=== PATIENT | male | born 1985 | race Caucasian/White ===

== ENCOUNTER 2017-12-21 21:28 | Emergency (ER) | payer SELFPAY ==
[~2017-12-21] VITALS: Ht 177.8 cm; Wt 86.2 kg
[2017-12-21] MEDS ORDERED: Ketorolac 30mg Inj IV ONE (22:00)
[2017-12-21] MEDS ORDERED: Midazolam 2mg/2ml Inj IVP ONE ×2 (22:00→23:00)
[2017-12-21] MEDS ORDERED: Etomidate 40mg/20ml Inj IV ONE ×2 (22:05→23:15)
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
[2017-12-21 22:39] VITALS: BP 122/95
[2017-12-21 22:50] VITALS: BP 110/74
[2017-12-21 22:55] VITALS: BP 108/82
[2017-12-21 23:00] VITALS: BP 108/72
[2017-12-21 23:05] VITALS: BP 110/78
[2017-12-21 23:10] VITALS: BP 107/68
[2017-12-22] MEDS ORDERED: DiphenhydrAMINE 50mg/ml Inj IVP ONE (00:45)
[2017-12-22] MEDS ORDERED: Etomidate 40mg/20ml Inj IV ONE (02:15)
[2017-12-22] MEDS ORDERED: ROBAXIN500 MG PO (02:16)
[2017-12-22] MEDS ORDERED: IBUPROFEN600 MG ORAL (02:16)
[2017-12-22] MEDS ORDERED: TYLENOL325 MG ORAL (02:19)
[2017-12-22 02:30] VITALS: BP 110/72
[2017-12-22 18:20] VITALS: BP 115/75
[2017-12-22 22:50] VITALS: BP 115/75
== END 2017-12-22 03:08 | disposition home or self-care (01) ==
LOC: EMR 22:04
DX: S03.00XA Dislocation of jaw, unspecified side, initial encounter (principal); Z72.89 Other problems related to lifestyle; K21.9 Gastro-esophageal reflux disease without esophagitis; X58.XXXA Exposure to other specified factors, initial encounter; Y92.098 Other place in other non-institutional residence as the place of occurrence of the external cause
CPT/HCPCS: 21480; 96374; 96375; 96376; 99284; J1200; J1885; J2250

== ENCOUNTER 2018-02-18 17:05 | Emergency (ER) | payer SELFPAY ==
[~2018-02-18] VITALS: Ht 177.8 cm; Wt 77.1 kg
[2018-02-18] VITALS (14 sets, daily range): BP systolic 123–165; BP diastolic 69–96
[~2018-02-18 17:05] MED LIST: IBUPROFEN600 MG ORAL; ROBAXIN500 MG PO; TYLENOL325 MG ORAL
--- NOTE | 2018-02-18 17:20 | NUR ---
ED Nurse Note: PT WALKED IN TO ER TODAY FROM HOME. AOX4. PT C/O POSSIBLE JAW DISLOCATION AFTER EATING ABOUT 6 HOURS AGO. PT C/O 08/20 PAIN. PT UNABLE TO OPEN AND CLOSE MOUTH FREELY. PT STATES HE HAS HX OF BROKEN JAW.
[2018-02-18] MEDS ORDERED: Norco 5mg/325mg tab ORAL ONE (17:30)
--- NOTE | 2018-02-18 19:11 | NUR ---
HAND-OFF: REPORT GIVEN TO LOTUS OLIVEIRA.
--- NOTE | 2018-02-18 19:15 | NUR ---
ED Nurse Note: received report from LOTUS Bear and assumed care, pt reports pain is tolerable, vss, waiting for bed for mod sedation, PA aware of pt's condition, will cont monitor. Pt aA&ox4, gcs=15, ambulatory w/ steady gait. airway patent. resp even and unlabored.
--- NOTE | 2018-02-18 19:44 | NUR ---
ED Nurse Note: report given to Connie GAUTAM, pt transferred to bed for monitoring for mod sedation. Addendum: 02/19/18 at 0132 by EDUARD correction [id number].
[2018-02-18] MEDS ORDERED: Propofol 200mg/20ml IV ONE ×3 (21:15→22:45)
--- NOTE | 2018-02-18 21:25 | NUR ---
ED Nurse Note: Moderate sedation procedure started at this time. IV access is established. Consent is signed. RT, RN, EMT, PA, and ERMD all at bedside.
[2018-02-18] MEDS ORDERED: Midazolam 2mg/2ml Inj ONE (22:00)
--- NOTE | 2018-02-18 22:07 | NUR ---
ED Nurse Note: 400mg of Propofol and 13mg of Versed administered by JUAN JOSÉ Guthrie during procedure at bedside.
--- NOTE | 2018-02-18 22:10 | Emergency Room Report ---
History of Present Illness General Chief Complaint: Pain Source: Patient Present Illness HPI 32-year-old male presents to the emergency department complaining of 6 out of 10 in severity pain that he describes as an localized aching pain with sensation of having his mandible dislocated. 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 Patient reports onset during eating 6 hours prior to arrival. He denies specific trauma or fall. Reports difficulty with closing his mouth. Denies any relieving factors. Patient states allergy to ketamine and states that it causes him to have severe hallucinations. Patient reports that he ill early requires procedural sedation. Pt. reports hx of esophageal strictures. Allergies: Coded Allergies: No Known Allergies (Unverified , 12/21/17) Patient History Past Medical History: see triage record Past Surgical History: none Immunizations: UTD Reviewed Nursing Documentation: PMH: Agreed; PSxH: Agreed Nursing Documentation-PMH Past Medical History: No History, Except For Hx Gastrointestinal Problems: Yes - GERD Review of Systems All Other Systems: negative except mentioned in HPI Physical Exam Vital Signs Date Time Temp Pulse Resp B/P (MAP) Pulse Ox O2 Delivery O2 Flow Rate FiO2 02/18/18 17:16 98.2 90 20 148/102 99 Room Air Sp02 EP Interpretation: reviewed, normal General Appearance: no apparent distress, alert, GCS 15, non-toxic Head: normocephalic, other - visible deformity in jaw/unable to close mouth. no bruises, erythema or blood. Eyes: bilateral eye normal inspection, bilateral eye PERRL ENT: hearing grossly normal, normal voice Neck: full range of motion Respiratory: lungs clear, normal breath sounds, speaking full sentences Cardiovascular #1: regular rate, rhythm Musculoskeletal: back normal, gait/station normal, normal range of motion, non- tender Neurologic: alert, oriented x3, responsive, motor strength/tone normal, sensory intact, speech normal, grossly normal Psychiatric: judgement/insight normal Skin: normal color, no rash, warm/dry, well hydrated Lymphatic: no adenopathy Procedures Procedural Sedation Consent: Verbal Time out called at: 21:23 Pre-Sedation Assessment: Elective, Eval. Immed. Prior to Sed, Pre-proc Edu. done, Plan for Sedation Discuss Airway Assessment (Malampati): I Heart: normal Lungs: normal Abdomen: normal Extremities: normal Procedures/Plans: Closed Reduction Plan for Moderate Sedation: Propofol ASA Score: I Procedure Narrative Total of 400mg Propofol given Pt. required additional 13mg of versed. After multiple attempts the mandible remains unsuccessfully reduced and is still dislocated at this time. No complication during sedation or closed reduction attempts. Will admit. Start Time: 21:25 End Time: 22:07 Post-Sedation Assessment Pt. tolerated well. there were no complications. total time was 42 minutes face to face. Communication: mandible dislocation Mental Status: Awake Respiration: Unlabored Skin Condition: WNL Abdomen: WNL Nausea: NO Vomiting: NO Medical Decision Making PA Attestation Dr. Guthrie is my supervising Physician whom patient management has been discussed with. Diagnostic Impression: Primary Impression: Recurrent jaw subluxation Qualified Codes: S03.00XA - Dislocation of jaw, unspecified side, initial encounter ER Course 32-year-old male presents to the emergency department complaining of 6 out of 10 in severity pain that he describes as an localized aching pain with sensation of having his mandible dislocated. 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 Patient reports onset during eating 6 hours prior to arrival. He denies specific trauma or fall. Reports difficulty with closing his mouth. Denies any relieving factors. Patient states allergy to ketamine and states that it causes him to have severe hallucinations. Patient reports that he ill early requires procedural sedation. Pt. reports hx of esophageal strictures. Ddx considered but are not limited to Fracture, dislocation, contusion, Sprain/ Strain/Spasm, self-dislocation, Vital signs: are WNL, pt. is afebrile H&PE are most consistent with Mandibular dislocation will perform imaging ORDERS: - Ct Facial Bones no contrast: anterior mandibular dislocation. ED INTERVENTIONS: - [place] PO -Zofran ODT --Procedural sedation - please see procedure note. --During procedure it seemed to slow patient was resisting attempts. There are multiple times where jaw was successfully palpated and visualized to have reduce with easy ability to open and close however soon as patient comes to he was reporting inability to open and close his mouth and would hold jaw in the same position. Also somewhat concerning as patient stated prior to starting procedural sedation that he requires 400 mg of propofol and in the past even 450. After multiple unsuccessful attempts to reduce the jaw ED efforts have ceased. After reviewing patient's previous visits chart it appears that 3 views provider was facing the similar situation where jaw was reduced successfully during procedural sedation however upon awakening patient was self dislocating. Patient was ultimately discharged for ENT follow-up with the right side of his mandible still displaced. Pending admission at time of Pt. sign out. Pt. is Signed out to On-Coming ED physician Dr. Chavez. CT/MRI/US Diagnostic Results CT/MRI/US Diagnostic Results : Imaging Test Ordered: CT Head No Contrast Impression " Both mandibular condyles are dislocated anteriorly, completely outside the glenoid fossa. The mandible is otherwise intact with no evidence of fracture." Per official radiology report- Please see report for specific details. Last Vital Signs Date Time Temp Pulse Resp B/P (MAP) Pulse Ox O2 Delivery O2 Flow Rate FiO2 02/18/18 17:20 98.4 86 18 142/96 98 Room Air Condition: Stable Signed Out To: Dr. Chavez Scripts Methocarbamol* (ROBAXIN-750*) 750 Mg Tablet 750 MG PO TID, #21 TAB 0 Refills Prov: Cr Chavez MD 02/19/18 Hydrocodone Bit/Acetaminophen 5-325* (NORCO 5-325*) 1 Each Tablet 1 TAB ORAL Q6H PRN for For Pain, #10 TAB 0 Refills Prov: Cr Chavez MD 02/19/18 Referrals: NOT CHOSEN IPA/,REFERRING (PCP) Susie Beaver Feb 18, 2018 22:10
[2018-02-18] MEDS ORDERED: Midazolam 2mg/2ml Inj IVP ONE (22:45)
--- NOTE | 2018-02-18 23:15 | NUR ---
ED Nurse Note: RECIEVED PT FROM [facility] HOR[facility] TO RESUME CARE, PT JUST COMPLETED MODERATE SEDATION FOR TMJ WHICH WAS NOT SUCCESSFUL, PT IS CURRENTLY RESTING WAITING FOR DISPO INFO OR ADMIT, PT IS AWAKE, ALERT AND ORIENTED X 4, NO SOB OR LABORED BREATHING, PT CONTINUES TO C/O HAVING PAIN AT 7/10, PT IS ON CARDIAC MONITORING, AND WILL CONTINUE TO CLOSELY MONITOR, PT HAS COMPLETELY RECOVERED FROM SEDATION.
[2018-02-19] VITALS (9 sets, daily range): BP systolic 108–158; BP diastolic 64–92
--- NOTE | 2018-02-19 00:30 | NUR ---
ED Nurse Note: PT CONTINUES TO REST IN BED, AWAKE AND ALERT, PT IS SLEEPING INTERMITTENTLY, AROUSEA EASILY, REMAINS ON CARDIAC MONITORING, IV SITE PATENT, NO SOB OR LABORED BREATHING, WILL CONTINUE OT CLOSELY MONITOR WHILE WAITING FOR INFO FOR DISPOSITION.
--- NOTE | 2018-02-19 01:30 | NUR ---
ED Nurse Note: PT IN BED SLEEPING, AROUSES EASILY TO VERBALS TIMULI, NO ACUTE CHAGNES OR INCREASED DISTRESS NOTED, V/S STABLE, NO SOB OR LABORED BREATHING, PT NO LONGER ASKING FOR PAIN MEDS, REMAINS ON CARDIAC MONITORING, WILL CONITNUE TO CLOSELY MONITOR AND RESUME CARE ORDERED.
--- NOTE | 2018-02-19 03:00 | NUR ---
ED Nurse Note: PT SLEEPING, ON MONITORING, IV PATENT, NO SOB OR LABORED BREATHING, NO CHAGNES OR INCREASED DISTRESS, V/S STABLE, WILL CONTINUE OT CLOSELY MONITOR.
--- NOTE | 2018-02-19 05:00 | NUR ---
ED Nurse Note: pt continues to sleep, arouses easily to verbal stimuli, states has mild pain at 2/10, denies cp, sob, or any other complaints, discomforts, or changes, pt jaw did not go back in place, md aware, pt being preapred for disposition.
[2018-02-19] MEDS ORDERED: NORCO 5-325 TA1 EACH ORAL (05:49)
[2018-02-19] MEDS ORDERED: ROBAXIN-750750 MG PO (05:49)
--- NOTE | 2018-02-19 06:15 | NUR ---
ED Nurse Note: Pt being d/c to home, pt is awake, alert and oriented x 4, pt is completely recovered from sedation procedure, pt deneis cp, no sob or labored breathing, pt is ambulatory, pt given f/u info, after care instructions and re-verbalizes proper medication administration and also given referrals for f/u md, pt has all paper works, iv line and armband removed, nad noted during d/c to home.
--- NOTE | 2018-02-19 09:21 | Diagnostic Imaging Report ---
Indications: Jaw pain, possible jaw dislocation, 7 out of 10 pain, patient unable to open and close mouth, history of prior mandibular fracture Technique: Spiral images obtained through the facial bones. No IV contrast utilized. Multiplanar reconstructions were generated.Total dose length product 654.96 mGycm. CTDIvol(s) 28.19 mGy. Dose reduction achieved using automated exposure control Comparison: none Findings: Both mandibular condyles are dislocated anteriorly, completely outside the glenoid fossa. The mandible is otherwise intact with no evidence of fracture. Some sort of prosthetic protrudes from the left mentum of the mandible laterally. Similar prostheses protruding from the maxilla on both sides, between the canine teeth and the first premolars. No acute fractures. The sinuses are clear. The upper aerodigestive tract appears unremarkable. No facial mass or adenopathy. The included intracranial structures are unremarkable. Visualized orbits and optic globes are unremarkable. Impression: Positive for bilateral anterior temporomandibular joint dislocation Dental prostheses versus cosmetic implants-correlate with clinical history No other acute or significant abnormality This agrees with the preliminary interpretation provided overnight by [facility] teleradiology service. The CT scanner at [facility] is accredited by the [employer] and the scans are performed using protocols designed to limit radiation exposure to as low as reasonably achievable to attain images of sufficient resolution adequate for diagnostic evaluation.
== END 2018-02-19 06:30 | disposition home or self-care (01) ==
LOC: EMR 17:51
DX: S03.00XA Dislocation of jaw, unspecified side, initial encounter (principal); X58.XXXA Exposure to other specified factors, initial encounter; Y92.9 Unspecified place or not applicable; Z88.8 Allergy status to other drugs, medicaments and biological substances
CPT/HCPCS: 21480; 70486; 96361; 96374; 96375; 96376; 99284; J2250; J2704

== ENCOUNTER 2018-05-31 03:28 | Inpatient (IN) | payer SELFPAY ==
[~2018-05-31] VITALS: Ht 172.7 cm; Wt 88.5 kg
[~2018-05-31 03:28] MED LIST changes: +NORCO 5-325 TA1 EACH ORAL; +ROBAXIN-750750 MG PO
[2018-05-31] MEDS ORDERED: Thiamine HCl 100 MG in D5W 55 ML IVPB STA (03:33)
[2018-05-31 03:40] VITALS: BP 110/76
--- NOTE | 2018-05-31 03:40 | NUR ---
ED Nurse Note: PATIENT WAS BROUGHT BY BREANNE FRAZIER 61 FROM HOME C/O ETOH AND VOMITTING SINCE 0300. BLOOD SUGAR 127. PATIENT HAS FLAT AFFECT NO RESPONSE. VSS AT THIS TIME, WILL CONTINUE TO MONITOR.
--- NOTE | 2018-05-31 03:44 | Emergency Room Report ---
History of Present Illness General Chief Complaint: Alcohol Intoxication Source: EMS Present Illness HPI Patient brought in by EMS. Is barely at a alliance party and been drinking alcohol. No most the alliance party didn't know where this person was. Paramedics were summoned and had loaded the patient up when another friend came out and reported that this patient has esophageal cancer. They're also told that the patient was vomiting up some blood or coffee grounds. Accu-Chek was normal in the field. The patient's vomiting on the way in. The patient's unable to give a history. Allergies: Coded Allergies: No Known Allergies (Unverified , 05/31/18) Patient History Social History: Reports: alcohol use Reviewed Nursing Documentation: PMH: Agreed; PSxH: Agreed Nursing Documentation-PMH Past Medical History: No History, Except For Physical Exam Vital Signs Date Time Temp Pulse Resp B/P (MAP) Pulse Ox O2 Delivery O2 Flow Rate FiO2 05/31/18 03:25 92 16 110/76 95 Room Air Sp02 EP Interpretation: reviewed, abnormal - Interpreted as low by me General Appearance: well appearing, Stupor Head: normocephalic Eyes: bilateral eye PERRL, bilateral eye abnormal EOM - Disconjugate gaze, bilateral eye Scleral Injection ENT: moist mucus membranes - Gag intact, white positive material vomited Neck: supple, no bony tend - Or deformity Respiratory: crackles, rales, rhonchi, other - Occasional cough Cardiovascular #1: regular rate, rhythm Cardiovascular #2: 2+ radial (R) Gastrointestinal: normal inspection, non tender, no mass, non-distended, decreased bowel sounds Musculoskeletal: back normal, other - Flaccid Neurologic: other - Unresponsive to painful stimuli, gag present Psychiatric: other - Stupor Skin: normal inspection, warm/dry Procedures Critical Care Time Critical Care Time Total Critical Care Time: 60 min bedside evaluation and treatment excludes procedures (EKG). Reason for critical care: stupor, airway assessment and control, UGI bleed Possible complications: hypotension, hypertension, [place], shock, arrhythmias, metabolic acidosis, end organ damage, respiratory failure. Interventions: SHOE REPAIRER airway, repeated exams, treatment of UGI bleed Course: Patient with stupor after alcohol ingestion vomiting coffee grounds. Multiple evaluations of airway. Insertion of nasal pharyngeal airway with patient desaturated due to traction by tongue. Treatment of upper GI bleed with Protonix. Treatment of vomiting with antiemetics. Discussion with admitting physician. Treatment of probable aspiration pneumonia with evaluation with blood cultures and treatment with antibiotics. Resolving stupor with repeated examinations. Consultations: nursing staff, EMS Performed by: Dr. Moore Tolerated well condition = serious Medical Decision Making Diagnostic Impression: Primary Impression: Acute alcoholic intoxication Qualified Codes: F10.929 - Alcohol use, unspecified with intoxication, unspecified Additional Impressions: Upper gastrointestinal bleed Aspiration pneumonia Qualified Codes: J69.0 - Pneumonitis due to inhalation of food and vomit Stupor ER Course Patient with altered mentation with alcohol on his breath and history of alcohol consumption presents with also vomiting some coffee grounds. Differential includes esophageal cancer, Carolyn-Lopez tear, gastritis, peptic ulcer disease amongst others. Regarding the altered mentation alcohol is primarily suspected however we need to consider electrolyte imbalance, drug ingestion amongst others. Patient is evaluated with EKG, chest x-ray and labs. He will need to have repeat neurologic exams. CT scan is ordered. Unable to ascertain if suicide attempt. EKG without injury. CXR poor insp and increased terrell R. WBC normal. BAL high. CT without acute pathology. 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 Coughing and rales R. Clinically has aspiration pna - BC and antibiotics ordered. Patient desat with upper airway obstruction - OPA suction and then SHOE REPAIRER airway inserted by ERMD. Sats on RA = 100%. 5:12. Patient still stupor but protecting airway better. He pulled out SHOE REPAIRER airway. Discussed with Dr. Nava. Patient still vomiting guaiac + material @6:30. Antiemetics repeated. Laboratory Tests Test 05/31/18 03:50 White Blood Count 7.6 K/UL (4.8-10.8) Red Blood Count 5.02 M/UL (4.70-6.10) Hemoglobin 11.1 G/DL (14.2-18.0) L Hematocrit 36.6 % (42.0-52.0) L Mean Corpuscular Volume 73 FL (80-99) L Mean Corpuscular Hemoglobin 22.1 PG (27.0-31.0) L Mean Corpuscular Hemoglobin Concent 30.3 G/DL (32.0-36.0) L Red Cell Distribution Width 16.0 % (11.6-14.8) H Platelet Count 471 K/UL (150-450) H Mean Platelet Volume 6.8 FL (6.5-10.1) Neutrophils (%) (Auto) 62.2 % (45.0-75.0) Lymphocytes (%) (Auto) 28.1 % (20.0-45.0) Monocytes (%) (Auto) 4.4 % (1.0-10.0) Eosinophils (%) (Auto) 3.6 % (0.0-3.0) H Basophils (%) (Auto) 1.6 % (0.0-2.0) Urine Color Pale yellow Urine Appearance Clear Urine pH 5 (4.5-8.0) Urine Specific [place] 1.010 (1.005-1.035) Urine Protein Negative (NEGATIVE) Urine Glucose (UA) Negative (NEGATIVE) Urine Ketones Negative (NEGATIVE) Urine Blood 3+ (NEGATIVE) H Urine Nitrite Negative (NEGATIVE) Urine Bilirubin Negative (NEGATIVE) Urine Urobilinogen Normal MG/DL (0.0-1.0) Urine Leukocyte Esterase 1+ (NEGATIVE) H Urine RBC 2-4 /HPF (0 - 0) H Urine WBC 0-2 /HPF (0 - 0) Urine Squamous Epithelial Cells None /LPF (NONE/OCC) Urine Bacteria None /HPF (NONE) Sodium Level 138 MMOL/L (136-145) Potassium Level 3.7 MMOL/L (3.5-5.1) Chloride Level 103 MMOL/L (98-107) Carbon Dioxide Level 22 MMOL/L (21-32) Anion Gap 13 mmol/L (5-15) Blood Urea Nitrogen 15 mg/dL (7-18) Creatinine 1.0 MG/DL (0.55-1.30) Estimate Glomerular Filtration Rate > 60 mL/min (>60) Glucose Level 131 MG/DL (74-106) H Calcium Level 8.2 MG/DL (8.5-10.1) L Total Bilirubin 0.1 MG/DL (0.2-1.0) L Aspartate Amino Transferase (AST) 17 U/L (15-37) Alanine Aminotransferase (ALT) 31 U/L (12-78) Alkaline Phosphatase 81 U/L (46-116) Total Creatine Kinase 94 U/L (26-308) Total Protein 7.8 G/DL (6.4-8.2) Albumin 4.0 G/DL (3.4-5.0) Globulin 3.8 g/dL Albumin/Globulin Ratio 1.1 (1.0-2.7) Salicylates Level 1.1 ug/mL (2.8-20) L Urine Opiates Screen Negative (NEGATIVE) Acetaminophen Level < 2 MCG/ML (10-30) L Urine Barbiturates Screen Negative (NEGATIVE) Phencyclidine (PCP) Screen Negative (NEGATIVE) Urine Amphetamines Screen Negative (NEGATIVE) Urine Benzodiazepines Screen Negative (NEGATIVE) Urine Cocaine Screen Negative (NEGATIVE) Urine Marijuana (THC) Screen Negative (NEGATIVE) Serum Alcohol 461 mg/dL EKG Diagnostic Results Rate: normal Rhythm: NSR ST Segments: no acute changes Rhythm Strip Diag. Results EP Interpretation: yes Rhythm: NSR, no PVC's, no ectopy Chest X-Ray Diagnostic Results Chest X-Ray Diagnostic Results : Chest X-Ray Ordered: Yes # of Views/Limited/Complete: 1 View Interpretation: no effusion, no pneumothorax, other - RLL infiltrate - poor inspriation Impression: Other Electronically Signed by: Electronically signed by Braden Moore MD CT/MRI/US Diagnostic Results CT/MRI/US Diagnostic Results : Imaging Test Ordered: head Impression no bleed, mass Status: improved Disposition: PLACE IN OBSERVATION Condition: Serious Scripts No Active Prescriptions or Reported Meds Braden Moore MD May 31, 2018 03:44
[2018-05-31] MEDS ORDERED: Pantoprazole Inj IVP ONE (03:45)
[2018-05-31 04:08] LABS: APPEARANCE,URINE CLEAR; BILIRUBIN, URINE NEGATIVE (NEGATIVE); COLOR,URINE PALE YELLOW; GLUCOSE, URINE (UA) NEGATIVE (NEGATIVE); KETONES,URINE NEGATIVE (NEGATIVE); LEUKOCYTE ESTERASE ,URINE 1+ (NEGATIVE); NITRITE,URINE NEGATIVE (NEGATIVE); PH,URINE 5 (4.5-8.0); PROTEIN,URINE NEGATIVE (NEGATIVE); UROBILINOGEN,URINE NORMAL MG/DL (0.0-1.0)
--- NOTE | 2018-05-31 04:11 | Diagnostic Imaging Report ---
EXAM: XR Chest, 1 View CLINICAL HISTORY: ALOC TECHNIQUE: Frontal view of the chest. COMPARISON: None FINDINGS: Lungs: Lungs show hypoventilatory changes but otherwise unremarkable. Pleural space: Unremarkable. No pneumothorax. Heart: Unremarkable. No cardiomegaly. Mediastinum: Unremarkable. Bones/joints: Unremarkable. IMPRESSION: Hypoventilatory chest. Otherwise no acute findings.
[2018-05-31 04:14] LABS: BASOPHILS % (AUTO) 1.6 % (0.0-2.0); EOSINOPHILS % (AUTO) 3.6 % (0.0-3.0); HEMATOCRIT 36.6 % (42.0-52.0); HEMOGLOBIN 11.1 G/DL (14.2-18.0); LYMPHOCYTES % (AUTO) 28.1 % (20.0-45.0); MEAN CORPUSCULAR VOLUME 73 FL (80-99); MONOCYTES % (AUTO) 4.4 % (1.0-10.0); NEUTROPHILS % (AUTO) 62.2 % (45.0-75.0); PLATELET COUNT 471 K/UL (150-450); RED BLOOD COUNT 5.02 M/UL (4.70-6.10); WHITE BLOOD COUNT 7.6 K/UL (4.8-10.8)
[2018-05-31 04:25] LABS: ANION GAP 13 mmol/L (5-15); BLOOD UREA NITROGEN 15 mg/dL (7-18); CALCIUM 8.2 MG/DL (8.5-10.1); CARBON DIOXIDE 22 MMOL/L (21-32); CHLORIDE 103 MMOL/L (98-107); POTASSIUM 3.7 MMOL/L (3.5-5.1); SODIUM 138 MMOL/L (136-145)
[2018-05-31 04:31] LABS: ALANINE AMINOTRANSFERASE 31 U/L (12-78); ALBUMIN/GLOBULIN RATIO 1.1 (1.0-2.7); ALKALINE PHOSPHATASE 81 U/L (46-116); ASPARTATE AMINO TRANSFERASE 17 U/L (15-37); BILIRUBIN,TOTAL 0.1 MG/DL (0.2-1.0); CREATINE KINASE 94 U/L (26-308)
[2018-05-31] MEDS ORDERED: Piperacillin/Tazobactam 3.375 GM in NS 110 ML IVPB ONE (05:00)
--- NOTE | 2018-05-31 05:05 | NUR ---
ED Nurse Note: Patient was desaturating 65% at room air. OPA and NPA were placed by ER MD.
--- NOTE | 2018-05-31 05:16 | Diagnostic Imaging Report ---
EXAM: CT Head Without Intravenous Contrast CLINICAL HISTORY: ALOC TECHNIQUE: Axial computed tomography images of the head/brain without intravenous contrast. CTDI is 70.53 mGy and DLP is 1478 mGy-cm. One or more of the following dose reduction techniques were used: automated exposure control, adjustment of the mA and/or kV according to patient size, use of iterative reconstruction technique. COMPARISON: none FINDINGS: Brain: Unremarkable. No hemorrhage. No significant white matter disease. No edema. Ventricles: Unremarkable. No ventriculomegaly. Bones/joints: Unremarkable. No acute fracture. Soft tissues: Unremarkable. Sinuses: Unremarkable as visualized. No acute sinusitis. Mastoid air cells: Unremarkable as visualized. No mastoid effusion. IMPRESSION: Normal head/brain CT.
--- NOTE | 2018-05-31 05:25 | NUR ---
ED Nurse Note: Patient is starting to wake up, removed NPA.
[2018-05-31 05:43] VITALS: BP 125/86
[2018-05-31] MEDS ORDERED: Miralax 17gm pkt ORAL PRN (06:00)
[2018-05-31] MEDS ORDERED: Acetaminophen 650 MG SUPP RECTAL PRN ×2 (06:00)
[2018-05-31] MEDS ORDERED: Milk of Magnesia 30ml Ud ORAL PRN (06:00)
[2018-05-31] MEDS ORDERED: LORazepam Inj 2mg/ml 1ml IV PRN (06:00)
[2018-05-31] MEDS ORDERED: HYDROcodone/Acetamin 5/325 tab ORAL PRN (06:15)
--- NOTE | 2018-05-31 06:18 | General Progress Note ---
Assessment/Plan Plan: [facility] An independent Hospitalist group, where every patient is our [facility] Internal Medicine and Hospitalist Overnight Note Please contact us at Please text me on Voalte from 8a-6p regarding any patient questions From 6p-8a please call [phone] Case discussed with ED Physician. Chart, labs, imaging, vitals and other flowsheets reviewed. Patient presents with bi bleed, etoh intox, asp pna Plan overnight will be ivf, abx, thiamine, folate, protonix Consultsfor AM are GI Full admission orders completed. Full and complete H+P to follow Time of note may not reflect time of encounter. Signed: Nidhi Nava DO [facility] Pager: [phone] Subjective Allergies: Coded Allergies: No Known Allergies (Unverified , 05/31/18) Objective Last 24 Hour Vital Signs Date Time Temp Pulse Resp B/P (MAP) Pulse Ox O2 Delivery O2 Flow Rate FiO2 05/31/18 05:43 97.2 85 20 125/86 96 Room Air 05/31/18 03:40 92 16 Room Air 05/31/18 03:40 97.2 92 16 110/76 95 Room Air 05/31/18 03:25 92 16 110/76 95 Room Air Laboratory Tests 05/31/18 03:50: White Blood Count 7.6, Red Blood Count 5.02, Hemoglobin 11.1L, Hematocrit 36.6L , Mean Corpuscular Volume 73L, Mean Corpuscular Hemoglobin 22.1L, Mean Corpuscular Hemoglobin Concent 30.3L, Red Cell Distribution Width 16.0H, Platelet Count 471H, Mean Platelet Volume 6.8, Neutrophils (%) (Auto) 62.2, Lymphocytes (%) (Auto) 28.1, Monocytes (%) (Auto) 4.4, Eosinophils (%) (Auto) 3.6H, Basophils (%) (Auto) 1.6, Urine Color Pale yellow, Urine Appearance Clear , Urine pH 5, Urine Specific [place] 1.010, Urine Protein Negative, Urine Glucose (UA) Negative, Urine Ketones Negative, Urine Blood 3+H, Urine Nitrite Negative, Urine Bilirubin Negative, Urine Urobilinogen Normal, Urine Leukocyte Esterase 1+H, Urine RBC 2-4H, Urine WBC 0-2, Urine Squamous Epithelial Cells None, Urine Bacteria None, Sodium Level 138, Potassium Level 3.7, Chloride Level 103, Carbon Dioxide Level 22, Anion Gap 13, Blood Urea Nitrogen 15, Creatinine 1.0, Estimat Glomerular Filtration Rate > 60, Glucose Level 131H, Calcium Level 8.2L, Total Bilirubin 0.1L, Aspartate Amino Transf (AST/SGOT) 17, Alanine Aminotransferase (ALT/SGPT) 31, Alkaline Phosphatase 81, Total Creatine Kinase 94, Total Protein 7.8, Albumin 4.0, Globulin 3.8, Albumin/Globulin Ratio 1.1, Salicylates Level 1.1L, Urine Opiates Screen Negative, Acetaminophen Level < 2L, Urine Barbiturates Screen Negative, Phencyclidine (PCP) Screen Negative, Urine Amphetamines Screen Negative, Urine Benzodiazepines Screen Negative, Urine Cocaine Screen Negative, Urine Marijuana (THC) Screen Negative, Serum Alcohol 461 Height (Feet): 5 Height (Inches): 11.00 Weight (Pounds): 195 Nidhi Nava DO May 31, 2018 06:18
--- NOTE | 2018-05-31 06:18 | NUR ---
ED Nurse Note: Gave report to LOTUS Valle. Will transfer patient upstairs after will start Zoysin.
--- NOTE | 2018-05-31 07:24 | NUR ---
ED Nurse Note: patient was admited to tele due to ETOH. Patient still has flat affect, VSS at this time. All belongings were given to the patient, patient was transfered by ACLS protocol.
--- NOTE | 2018-05-31 07:25 | NUR ---
NURSE NOTES: Received report from BRYNN Cheney RN. Report was given to Candace Lopez RN.
--- NOTE | 2018-05-31 07:25 | NUR ---
NURSE NOTES: Report received from Angelica Hackett RN.Pt a new admission ED,for ALOC,ETOH abuse and UGIB.Pt stuporous,very difficult to arouse with verbal command, pupils very sluggish,opens eyes with painful stimuli,noted no resp distress on RA,no signs of pain or discomfort,SR on the monitor,Pt's breath smells of alcohol,Pt's gown fr ED with dark brown stains from vomiting,SR up x2 ,call addison within reach,HOB elevated,bed alarm in placed,bed lock in lowest position,will continue to monitor pt's neuro status.
[2018-05-31 08:00] VITALS: BP 117/78
[2018-05-31] MEDS: Thiamine 100mg tab ORAL SCH (08:50)
[2018-05-31] MEDS: Pantoprazole Inj IV SCH ×2 (08:50→17:38)
--- NOTE | 2018-05-31 08:59 | History & Physical ---
History and Physical History & Physicial Pt seen and examined at bedside. Full H+P to follow. pt admitted for altered mentation, possible GI bleeding. Pt at bedside is difficult to arouse with sternal rub, however was able to arouse. Pt did not want to converse with me. Examination is benign. Will cont IV fluids, call GI consult as well. Pt without any evidence of infection (pna) at this time. Deya Kelly MD May 31, 2018 08:59
[2018-05-31 12:00] VITALS: BP 94/66
--- NOTE | 2018-05-31 12:00 | NUR ---
NURSE NOTES: Change in neuro status noted,pt's eyes open spontaneously when called by name and answers verbally but still lethargic,pt continue to sleep most of the time.
[2018-05-31] MEDS: Ampicillin/Sulbactam Sod 3 GM in NS 110 ML IVPB SCH ×2 (13:13→17:38)
[2018-05-31 16:00] VITALS: BP 109/77
--- NOTE | 2018-05-31 17:01 | NUR ---
CASE MANAGEMENT: REVIEW 33/M BIBA FROM HOME CC: VOMITING . ALCOHOL INTOXICATION SI: EtOH ABUSE . ASPIRATION . UPPER GI BLEED T 97.4 HR 84 RR 18 BP 94/66 SAT 94% ROOM AIR H/H 11.1/36.6 TOX: ALCOHOL 461 IS: THIAMINE IV X1 NS IVF BOLUS X1 PROTONIX IV X1 LEVOFLOXACIN IV X1 ZOSYN IV X1 PATIENT ADMITTED TO TELEMETRY UNIT05/31/2018 DCP: PATIENT IS FROM HOME
--- NOTE | 2018-05-31 17:57 | General Progress Note ---
Assessment/Plan Plan: GI CONSULT Dictated Patient more awake, but still confused Will follow EGD once stabilized Thank you Ivelisse Johns MD Subjective Allergies: Coded Allergies: No Known Allergies (Unverified , 05/31/18) Objective Last 24 Hour Vital Signs Date Time Temp Pulse Resp B/P (MAP) Pulse Ox O2 Delivery O2 Flow Rate FiO2 05/31/18 12:00 97.4 95 18 94/66 (75) 94 05/31/18 12:00 84 05/31/18 08:30 Room Air 05/31/18 08:00 98 05/31/18 08:00 97.4 88 19 117/78 (91) 98 05/31/18 07:23 97.2 85 20 125/86 96 Room Air 05/31/18 05:43 97.2 85 20 125/86 96 Room Air 05/31/18 03:40 92 16 Room Air 05/31/18 03:40 97.2 92 16 110/76 95 Room Air 05/31/18 03:25 92 16 110/76 95 Room Air Intake and Output 05/30/18 05/31/18 19:00 07:00 Intake Total 2000 ml Output Total 400 ml Balance 1600 ml Intake IV Total 2000 ml Output Urine Total 400 ml # Voids 3 Laboratory Tests 05/31/18 03:50: White Blood Count 7.6, Red Blood Count 5.02, Hemoglobin 11.1L, Hematocrit 36.6L , Mean Corpuscular Volume 73L, Mean Corpuscular Hemoglobin 22.1L, Mean Corpuscular Hemoglobin Concent 30.3L, Red Cell Distribution Width 16.0H, Platelet Count 471H, Mean Platelet Volume 6.8, Neutrophils (%) (Auto) 62.2, Lymphocytes (%) (Auto) 28.1, Monocytes (%) (Auto) 4.4, Eosinophils (%) (Auto) 3.6H, Basophils (%) (Auto) 1.6, Prothrombin Time 10.1, Prothromb Time International Ratio 1.0, Activated Partial Thromboplast Time 27, Urine Color Pale yellow, Urine Appearance Clear, Urine pH 5, Urine Specific [place] 1.010, Urine Protein Negative, Urine Glucose (UA) Negative, Urine Ketones Negative, Urine Blood 3+H, Urine Nitrite Negative, Urine Bilirubin Negative, Urine Urobilinogen Normal, Urine Leukocyte Esterase 1+H, Urine RBC 2-4H, Urine WBC 0-2 , Urine Squamous Epithelial Cells None, Urine Bacteria None, Sodium Level 138, Potassium Level 3.7, Chloride Level 103, Carbon Dioxide Level 22, Anion Gap 13, Blood Urea Nitrogen 15, Creatinine 1.0, Estimat Glomerular Filtration Rate > 60 , Glucose Level 131H, Calcium Level 8.2L, Total Bilirubin 0.1L, Aspartate Amino Transf (AST/SGOT) 17, Alanine Aminotransferase (ALT/SGPT) 31, Alkaline Phosphatase 81, Total Creatine Kinase 94, Total Protein 7.8, Albumin 4.0, Globulin 3.8, Albumin/Globulin Ratio 1.1, Salicylates Level 1.1L, Urine Opiates Screen Negative, Acetaminophen Level < 2L, Urine Barbiturates Screen Negative, Phencyclidine (PCP) Screen Negative, Urine Amphetamines Screen Negative, Urine Benzodiazepines Screen Negative, Urine Cocaine Screen Negative, Urine Marijuana (THC) Screen Negative, Serum Alcohol 461 Height (Feet): 5 Height (Inches): 9.00 Weight (Pounds): 195 Ivelisse Johns MD May 31, 2018 17:57
--- NOTE | 2018-05-31 18:05 | NUR ---
NURSE NOTES: Pt more responsive at this time ,wakes up on and off and follows command,no resp distress noted.no coffee ground emesis presented.
--- NOTE | 2018-05-31 19:32 | NUR ---
HAND-OFF: Report given to Giovanna GAUTAM,pt stable,resting in bed awake at this time.
--- NOTE | 2018-05-31 19:43 | History and Physical ---
History of Present Illness General Date patient seen: May 31, 2018 Time patient seen: 08:55 Reason for Hospitalization: Alcohol Intoxication Present Illness HPI 33 y/o man brought in by EMS who was experiencing coffee ground emesis. The patient was at a [employer] last night and reportedly had been drinking a significant amount of alcohol. Paramedics were summoned and had loaded the patient up when another friend came out and reported that this patient has esophageal cancer. They're also told that the patient was vomiting up some blood or coffee grounds. Accu-Chek was normal in the field. The patient was vomiting upon arrival to the ED. The pt was unable to give a history in the ED and this AM when I am examining him, hes also not responding to questions, however is arousable to sternal rub.. Allergies: Coded Allergies: No Known Allergies (Unverified , 05/31/18) Medication History No Active Prescriptions or Reported Meds Patient History Limited by: medical condition Healthcare decision maker n/a Resuscitation status Full Code Advanced Directive on File No Past Medical/Surgical History Past Medical/Surgical History: (1) Acute alcoholic intoxication (2) Upper gastrointestinal bleed Family History Family History: Patient reports no known family medical history. Social History Social History: (1) ETOH abuse Review of Systems ROS Narrative unobtainable, pt declines to participate in interview Physical Exam Physical Exam Narrative General: lethargic yet arousable to sternal rub, does not participate in interview and is not verbal, appears stated age Head: normocephalic, without obvious abnormality, atraumatic Eyes: conjunctivae/corneas clear. Throat: lips, mucosa, and tongue normal. MMM Neck: supple, symmetrical, trachea midline, and no JVD Lungs: clear to auscultation bilaterally Heart: regular rate and rhythm, S1, S2 normal, no murmur, click, rub or gallop Abdomen: soft, non-tender, non-distended, bowel sounds normal; no masses or organomegaly Extremities: extremities normal, atraumatic, no cyanosis or edema Pulses: 2+ and symmetric Skin: skin color, texture, turgor normal; no rashes or lesions Last 24 Hour Vital Signs Date Time Temp Pulse Resp B/P (MAP) Pulse Ox O2 Delivery O2 Flow Rate FiO2 05/31/18 16:00 90 05/31/18 16:00 98.6 93 19 109/77 (88) 98 05/31/18 12:00 97.4 95 18 94/66 (75) 94 05/31/18 12:00 84 05/31/18 08:30 Room Air 05/31/18 08:00 98 05/31/18 08:00 97.4 88 19 117/78 (91) 98 05/31/18 07:23 97.2 85 20 125/86 96 Room Air 05/31/18 05:43 97.2 85 20 125/86 96 Room Air 05/31/18 03:40 92 16 Room Air 05/31/18 03:40 97.2 92 16 110/76 95 Room Air 05/31/18 03:25 92 16 110/76 95 Room Air Intake and Output 05/30/18 05/31/18 19:00 07:00 Intake Total 2000 ml Output Total 400 ml Balance 1600 ml Intake IV Total 2000 ml Output Urine Total 400 ml # Voids 3 Laboratory Tests Test 05/31/18 03:50 White Blood Count 7.6 K/UL (4.8-10.8) Red Blood Count 5.02 M/UL (4.70-6.10) Hemoglobin 11.1 G/DL (14.2-18.0) L Hematocrit 36.6 % (42.0-52.0) L Mean Corpuscular Volume 73 FL (80-99) L Mean Corpuscular Hemoglobin 22.1 PG (27.0-31.0) L Mean Corpuscular Hemoglobin Concent 30.3 G/DL (32.0-36.0) L Red Cell Distribution Width 16.0 % (11.6-14.8) H Platelet Count 471 K/UL (150-450) H Mean Platelet Volume 6.8 FL (6.5-10.1) Neutrophils (%) (Auto) 62.2 % (45.0-75.0) Lymphocytes (%) (Auto) 28.1 % (20.0-45.0) Monocytes (%) (Auto) 4.4 % (1.0-10.0) Eosinophils (%) (Auto) 3.6 % (0.0-3.0) H Basophils (%) (Auto) 1.6 % (0.0-2.0) Prothrombin Time 10.1 SEC (9.30-11.50) Prothromb Time International Ratio 1.0 (0.9-1.1) Activated Partial Thromboplast Time 27 SEC (23-33) Urine Color Pale yellow Urine Appearance Clear Urine pH 5 (4.5-8.0) Urine Specific [place] 1.010 (1.005-1.035) Urine Protein Negative (NEGATIVE) Urine Glucose (UA) Negative (NEGATIVE) Urine Ketones Negative (NEGATIVE) Urine Blood 3+ (NEGATIVE) H Urine Nitrite Negative (NEGATIVE) Urine Bilirubin Negative (NEGATIVE) Urine Urobilinogen Normal MG/DL (0.0-1.0) Urine Leukocyte Esterase 1+ (NEGATIVE) H Urine RBC 2-4 /HPF (0 - 0) H Urine WBC 0-2 /HPF (0 - 0) Urine Squamous Epithelial Cells None /LPF (NONE/OCC) Urine Bacteria None /HPF (NONE) Sodium Level 138 MMOL/L (136-145) Potassium Level 3.7 MMOL/L (3.5-5.1) Chloride Level 103 MMOL/L (98-107) Carbon Dioxide Level 22 MMOL/L (21-32) Anion Gap 13 mmol/L (5-15) Blood Urea Nitrogen 15 mg/dL (7-18) Creatinine 1.0 MG/DL (0.55-1.30) Estimat Glomerular Filtration Rate > 60 mL/min (>60) Glucose Level 131 MG/DL (74-106) H Calcium Level 8.2 MG/DL (8.5-10.1) L Total Bilirubin 0.1 MG/DL (0.2-1.0) L Aspartate Amino Transf (AST/SGOT) 17 U/L (15-37) Alanine Aminotransferase (ALT/SGPT) 31 U/L (12-78) Alkaline Phosphatase 81 U/L (46-116) Total Creatine Kinase 94 U/L (26-308) Total Protein 7.8 G/DL (6.4-8.2) Albumin 4.0 G/DL (3.4-5.0) Globulin 3.8 g/dL Albumin/Globulin Ratio 1.1 (1.0-2.7) Salicylates Level 1.1 ug/mL (2.8-20) L Urine Opiates Screen Negative (NEGATIVE) Acetaminophen Level < 2 MCG/ML (10-30) L Urine Barbiturates Screen Negative (NEGATIVE) Phencyclidine (PCP) Screen Negative (NEGATIVE) Urine Amphetamines Screen Negative (NEGATIVE) Urine Benzodiazepines Screen Negative (NEGATIVE) Urine Cocaine Screen Negative (NEGATIVE) Urine Marijuana (THC) Screen Negative (NEGATIVE) Serum Alcohol 461 mg/dL Height (Feet): 5 Height (Inches): 9.00 Weight (Pounds): 195 Medications Current Medications Medications (Trade) Dose Ordered Sig/Kait Route PRN Reason Start Time Stop Time Status Last Admin Dose Admin Acetaminophen (Tylenol) 650 mg Q4H PRN ORAL Mild Pain (Pain Scale 1-3) 05/31/18 06:00 06/30/18 05:59 Acetaminophen (Tylenol) 650 mg Q4H PRN ORAL fever 05/31/18 06:00 06/30/18 05:59 Acetaminophen (Tylenol) 650 mg Q4H PRN RECTAL Mild Pain (Pain Scale 1-3) 05/31/18 06:00 06/30/18 05:59 Acetaminophen (Tylenol) 650 mg Q4H PRN RECTAL fever 05/31/18 06:00 06/30/18 05:59 Acetaminophen/ Hydrocodone Bitart ([place] 5/325) 1 tab Q4H PRN ORAL (Pain Scale 4-10) 05/31/18 06:15 06/07/18 06:14 Ampicillin Sodium/ Sulbactam Sodium 3 gm/Sodium Chloride 110 ml @ 220 mls/hr Q6HR IVPB 05/31/18 12:00 06/07/18 11:59 05/31/18 17:38 Bisacodyl (Dulcolax) 10 mg DAILYPRN PRN RECTAL Constipation 05/31/18 06:00 06/30/18 05:59 Dextrose (Dextrose 50%) 25 ml Q30M PRN IV Hypoglycemia 05/31/18 06:00 06/30/18 05:59 Dextrose (Dextrose 50%) 50 ml Q30M PRN IV Hypoglycemia 05/31/18 06:00 06/30/18 05:59 Folic Acid (Folate) 1 mg DAILY ORAL 05/31/18 09:00 06/30/18 08:59 05/31/18 08:49 Hydromorphone HCl (Dilaudid) 0.5 mg Q6H PRN IVP breakthrough pain 05/31/18 06:00 06/07/18 05:59 Lorazepam (Ativan 2mg/ml 1ml) 2 mg Q4H PRN IV severe agitation/seizures 05/31/18 06:00 06/07/18 05:59 Magnesium Hydroxide (Mom) 30 ml HSPRN PRN ORAL Constipation 05/31/18 06:00 06/30/18 05:59 Multivitamins (Multivitamins) 1 tab DAILY ORAL 05/31/18 09:00 06/30/18 08:59 05/31/18 08:49 Ondansetron HCl (Zofran) 4 mg Q6H PRN IVP Nausea & Vomiting 05/31/18 06:00 06/30/18 05:59 05/31/18 06:43 Pantoprazole (Protonix) 40 mg BID IV 05/31/18 09:00 06/30/18 08:59 05/31/18 17:38 Polyethylene Glycol (Miralax) 17 gm DAILYPRN PRN ORAL Constipation 05/31/18 06:00 06/30/18 05:59 Sodium Chloride 1,000 ml @ 100 mls/hr Q10H IVLG 05/31/18 07:00 06/30/18 06:59 05/31/18 08:49 Thiamine HCl (Vitamin B1) 100 mg DAILY ORAL 05/31/18 09:00 06/30/18 08:59 05/31/18 08:50 Assessment/Plan Assessment: #Coffee ground emesis #r/o upper GI bleed - Monitor hgb closley - 2 large bore IVs - IV fluid resuscitation - GI consult appreciated - Aspiration precautions #Metabolic encephalopathy # Etoh Abuse - Likely secondary to etoh abuse - Cont IVF, thiamine/folate Deya Kelly MD May 31, 2018 19:43
[2018-05-31 20:00] VITALS: BP 114/72
--- NOTE | 2018-05-31 20:00 | NUR ---
NURSE NOTES: Received patient from Giovanna GAUTAM. Patient is awake and oriented x4. Patient is on room air and shows no signs of respiratory distress. Patient able to verbalize demands, IV site is left hand 20g and a right hand 20g both intact and asymptomatic. Bed is locked, side rails up x2, call light within reach, will continue to monitor.
--- NOTE | 2018-05-31 21:01 | Consultation ---
DATE OF CONSULTATION: 05/31/2018 CHIEF COMPLAINT: I was asked to see this patient by Dr. Deya Kelly for evaluation of possible gastrointestinal bleeding. HISTORY OF PRESENT ILLNESS: The patient is a 33-year-old white man, who was brought in a state of intoxication into the emergency room. He was initially a stupor, somewhat hard to arouse but now he is awake. However, he is still confused and unable to focus on my questions. He denies any abdominal pain, nausea, vomiting. He did not know why he is here. In the emergency room, he reports that he had some vomiting of dark material. CBC showed some degree of microcytic anemia. However no further details are available. Of note, he had markedly high alcohol level of over 0.4 on admission. PAST MEDICAL HISTORY: Otherwise unknown. FAMILY HISTORY: Unknown. SOCIAL HISTORY: Unknown except the patient does drink alcohol. REVIEW OF SYSTEMS: Unobtainable. PHYSICAL EXAMINATION: GENERAL: Awake although confused white man, who was seen to be mildly delirious. HEENT: Normocephalic and atraumatic. Sclerae anicteric. Oropharynx clear. NECK: Supple. CHEST: Clear to auscultation. CARDIOVASCULAR: Regular rate. ABDOMEN: Soft and nontender. EXTREMITIES: No edema. LABORATORY DATA: Noted. ASSESSMENT: This patient is recovering from state of acute alcoholic intoxication. We will need to be monitored his anemia. He may have had some degree of upper gastrointestinal bleeding which is typically from alcoholic gastritis. However his microcytic anemia is significant therefore he should be checked iron deficiency. There is a row for endoscopy once the patient has recovered from his acute intoxication. The patient should be placed on a proton pump inhibitor and diet can be given as tolerated. RECOMMENDATIONS: Per above discussion and per orders written in the chart. Thank you for asking me to participate in the care of this patient. Ivelisse Johns M.D. DR: Moises JOB#: [id number] CC: JUNIOR
[2018-06-01] VITALS: BP 123/84
[2018-06-01] MEDS: Ampicillin/Sulbactam Sod 3 GM in NS 110 ML IVPB SCH ×5 (00:13→23:08)
[2018-06-01] MEDS ORDERED: HYDROcodone/Acetamin 5/325 tab ORAL PRN (00:45)
[2018-06-01] MEDS: HYDROcodone/Acetamin 10/325 tab ORAL PRN ×4 (00:54→21:08)
[2018-06-01 04:00] VITALS: BP 114/75
--- NOTE | 2018-06-01 07:10 | NUR ---
HAND-OFF: Report given to Ravinder RN. Patient showing no signs of distress.
--- NOTE | 2018-06-01 07:18 | NUR ---
NURSE NOTES: Pt received from Robert RN alert and oriented x4 with no acute s/s of distress. IV site asymptomatic and patent. Bed in lowest position, call light and belongings within reach.
[2018-06-01 08:00] VITALS: BP 117/75
[2018-06-01 08:15] LABS: BASOPHILS % (AUTO) 1.3 % (0.0-2.0); EOSINOPHILS % (AUTO) 3.5 % (0.0-3.0); HEMATOCRIT 29.5 % (42.0-52.0); HEMOGLOBIN 9.1 G/DL (14.2-18.0); LYMPHOCYTES % (AUTO) 36.3 % (20.0-45.0); MEAN CORPUSCULAR VOLUME 73 FL (80-99); MONOCYTES % (AUTO) 8.3 % (1.0-10.0); NEUTROPHILS % (AUTO) 50.6 % (45.0-75.0); PLATELET COUNT 348 K/UL (150-450); RED BLOOD COUNT 4.06 M/UL (4.70-6.10); RED CELL DISTRIBUTION WIDTH 15.7 % (11.6-14.8); WHITE BLOOD COUNT 6.5 K/UL (4.8-10.8)
[2018-06-01 08:38] LABS: ANION GAP 11 mmol/L (5-15); BLOOD UREA NITROGEN 11 mg/dL (7-18); CALCIUM 7.6 MG/DL (8.5-10.1); CARBON DIOXIDE 24 MMOL/L (21-32); CHLORIDE 106 MMOL/L (98-107); CREATININE 1.2 MG/DL (0.55-1.30); PHOSPHORUS 1.9 MG/DL (2.5-4.9); POTASSIUM 3.6 MMOL/L (3.5-5.1); SODIUM 141 MMOL/L (136-145)
[2018-06-01] MEDS: Pantoprazole Inj IV SCH ×2 (08:50→17:50)
[2018-06-01] MEDS: Thiamine 100mg tab ORAL SCH (08:50)
[2018-06-01 08:52] LABS: % IRON SATURATION 5 % (15-50); IRON 17 ug/dL (50-175); TOTAL IRON BINDING CAPACITY 358 ug/dL (250-450)
--- NOTE | 2018-06-01 11:02 | General Progress Note ---
Assessment/Plan Plan: Assessment - ETOH and drug intoxication - recovering - microcytic Iron deficient anemia - UGIB - GERD with stricture - current dysphagia - dislocated jaw Recommendations - ENT eval - PPI - EGD with dilation in am Subjective Allergies: Coded Allergies: No Known Allergies (Unverified , 05/31/18) Subjective more awake says had consumed "Canabis infused Alcohol" stated he has GERD with stricture s/p multiple EGD, last 1 year ago now has pill dysphagia wants another EGD says has dislocated Jaw x past 12 hours cannot close mouth Objective Last 24 Hour Vital Signs Date Time Temp Pulse Resp B/P (MAP) Pulse Ox O2 Delivery O2 Flow Rate FiO2 06/01/18 09:00 Room Air 06/01/18 08:00 71 06/01/18 08:00 97.9 78 17 117/75 (89) 97 06/01/18 04:00 98.1 74 16 114/75 (88) 98 06/01/18 03:49 86 06/01/18 00:00 98.7 83 16 123/84 (97) 96 05/31/18 21:00 Room Air 05/31/18 20:00 98.2 87 16 114/72 (86) 99 05/31/18 20:00 94 05/31/18 16:00 90 05/31/18 16:00 98.6 93 19 109/77 (88) 98 05/31/18 12:00 97.4 95 18 94/66 (75) 94 05/31/18 12:00 84 Intake and Output 05/31/18 06/01/18 18:59 06:59 Intake Total 860 ml 510 ml Output Total 1000 ml 600 ml Balance -140 ml -90 ml Intake IV Total 860 ml 510 ml Output Urine Total 1000 ml 600 ml Laboratory Tests 06/01/18 07:03: White Blood Count 6.5, Red Blood Count 4.06L, Hemoglobin 9.1L, Hematocrit 29.5L , Mean Corpuscular Volume 73L, Mean Corpuscular Hemoglobin 22.3L, Mean Corpuscular Hemoglobin Concent 30.7L, Red Cell Distribution Width 15.7H, Platelet Count 348, Mean Platelet Volume 6.6, Neutrophils (%) (Auto) 50.6, Lymphocytes (%) (Auto) 36.3, Monocytes (%) (Auto) 8.3, Eosinophils (%) (Auto) 3.5H, Basophils (%) (Auto) 1.3, Sodium Level 141, Potassium Level 3.6, Chloride Level 106, Carbon Dioxide Level 24, Anion Gap 11, Blood Urea Nitrogen 11, Creatinine 1.2, Estimat Glomerular Filtration Rate > 60, Glucose Level 75, Calcium Level 7.6L, Phosphorus Level 1.9L, Magnesium Level 1.7L, Iron Level 17L , Total Iron Binding Capacity 358, Percent Iron Saturation 5L, Unsaturated Iron Binding 341 Height (Feet): 5 Height (Inches): 9.00 Weight (Pounds): 195 Objective WDWN NCAT, (+) Dislocated jaw supple CTA RRR abd soft NT ND no edema non focal Ivelisse Johns MD Jun 01, 2018 11:02
--- NOTE | 2018-06-01 11:30 | NUR ---
PT Note Attempted to see patient for eval but patient was asleep; unable to arouse patient. Will check again later.
--- NOTE | 2018-06-01 11:36 | NUR ---
NURSE NOTES: Dr. Johns spoke with pt about risks and benefits and reason for Endoscopy. Pt signed consent form with RN as witness, pt is alert and oriented x4, able to understand risks and benefits and reason for procedure. Consent placed in chart, made Charge Nurse Kaushal aware.
[2018-06-01 12:00] VITALS: BP 124/51
[2018-06-01] MEDS ORDERED: Tubing IV Secondary IV ONE (15:12)
[2018-06-01 16:00] VITALS: BP 128/83
[2018-06-01] MEDS: HYDROmorphone 1mg/ml Carpuject IVP PRN ×2 (16:05→22:41)
--- NOTE | 2018-06-01 17:25 | General Progress Note ---
Assessment/Plan Assessment: #Coffee ground emesis #r/o upper GI bleed - Monitor hgb closely - 2 large bore IVs - IV fluid resuscitation - GI consult appreciated, plan for EGD in AM - Aspiration precautions #Metabolic encephalopathy # Etoh Abuse - Likely secondary to etoh abuse - Cont IVF, thiamine/folate #? Mandibular dislocation - Will d/w ENT Subjective Date patient seen: Jun 01, 2018 Time patient seen: 12:50 ROS Limited/Unobtainable: No Allergies: Coded Allergies: No Known Allergies (Unverified , 05/31/18) Subjective More awake and conversant today. No further coffee ground emesis, no melena, seen by GI and plan for EGD in AM. Pt states that he dislocated his jaw after a temp probe was inserted into his mouth yesterday. Objective Last 24 Hour Vital Signs Date Time Temp Pulse Resp B/P (MAP) Pulse Ox O2 Delivery O2 Flow Rate FiO2 06/01/18 16:00 98.5 70 18 128/83 (98) 96 06/01/18 16:00 78 06/01/18 12:00 98.1 76 18 124/51 (75) 97 06/01/18 12:00 68 06/01/18 09:00 Room Air 06/01/18 08:00 71 06/01/18 08:00 97.9 78 17 117/75 (89) 97 06/01/18 04:00 98.1 74 16 114/75 (88) 98 06/01/18 03:49 86 06/01/18 00:00 98.7 83 16 123/84 (97) 96 05/31/18 21:00 Room Air 05/31/18 20:00 98.2 87 16 114/72 (86) 99 05/31/18 20:00 94 Intake and Output 05/31/18 06/01/18 19:00 07:00 Intake Total 860 ml 510 ml Output Total 1000 ml 600 ml Balance -140 ml -90 ml Intake IV Total 860 ml 510 ml Output Urine Total 1000 ml 600 ml Laboratory Tests 06/01/18 07:03: White Blood Count 6.5, Red Blood Count 4.06L, Hemoglobin 9.1L, Hematocrit 29.5L , Mean Corpuscular Volume 73L, Mean Corpuscular Hemoglobin 22.3L, Mean Corpuscular Hemoglobin Concent 30.7L, Red Cell Distribution Width 15.7H, Platelet Count 348, Mean Platelet Volume 6.6, Neutrophils (%) (Auto) 50.6, Lymphocytes (%) (Auto) 36.3, Monocytes (%) (Auto) 8.3, Eosinophils (%) (Auto) 3.5H, Basophils (%) (Auto) 1.3, Sodium Level 141, Potassium Level 3.6, Chloride Level 106, Carbon Dioxide Level 24, Anion Gap 11, Blood Urea Nitrogen 11, Creatinine 1.2, Estimat Glomerular Filtration Rate > 60, Glucose Level 75, Calcium Level 7.6L, Phosphorus Level 1.9L, Magnesium Level 1.7L, Iron Level 17L , Total Iron Binding Capacity 358, Percent Iron Saturation 5L, Unsaturated Iron Binding 341 Height (Feet): 5 Height (Inches): 9.00 Weight (Pounds): 195 Objective General: alert, cooperative, no distress, appears stated age Head: normocephalic, without obvious abnormality, atraumatic Eyes: conjunctivae/corneas clear. PERRL, EOM's intact Throat: lips, mucosa, and tongue normal. MMM Neck: supple, symmetrical, trachea midline, and no JVD Lungs: clear to auscultation bilaterally Heart: regular rate and rhythm, S1, S2 normal, no murmur, click, rub or gallop Abdomen: soft, non-tender, non-distended, bowel sounds normal; no masses or organomegaly Extremities: extremities normal, atraumatic, no cyanosis or edema Pulses: 2+ and symmetric Skin: skin color, texture, turgor normal; no rashes or lesions Neurologic: grossly normal, no focal deficits Deya Kelly MD Jun 01, 2018 17:25
--- NOTE | 2018-06-01 19:10 | NUR ---
HAND-OFF: Report given to LOTUS Ferrera. No acute s/s of distress.
--- NOTE | 2018-06-01 19:25 | NUR ---
NURSE NOTES: Report received from LOTUS Castellon. Observed pt lying on the bed, appears calm and comfortable. A/O x4. SR with rn cardiac rehab. Room air with no signs of distress noted. L H 20 G, intact and patent, running NS at 100cc/hr. R H 20G, intact and patent. Bed in the lowest position. Side rails up x2. Will continue to monitor.
[2018-06-01 20:00] VITALS: BP 127/79
[2018-06-02] VITALS (10 sets, daily range): BP systolic 102–135; BP diastolic 61–86
--- NOTE | 2018-06-02 01:00 | NUR ---
NURSE NOTES: Pt appears calm and sleeping. No signs of distress noted at this time. SR with life insurance actuary. No signs of SOB. Denies any pain. Pt states that he is alright. Will continue to monitor.
[2018-06-02] MEDS: Ampicillin/Sulbactam Sod 3 GM in NS 110 ML IVPB SCH ×3 (05:11→17:56)
--- NOTE | 2018-06-02 07:12 | NUR ---
HAND-OFF: Report given to LOTUS Castellon.
--- NOTE | 2018-06-02 07:15 | NUR ---
NURSE NOTES: Pt received from Iban, RN alert and oriented x4 with no acute s/s of distress. IV site asymptomatic and patent. Bed in lowest position, call light and belongings within reach. Pt currently on NPO.
[2018-06-02] MEDS ORDERED: Albuterol/Ipratropium 3ml neb HHN SCH (08:00)
[2018-06-02] MEDS: Pantoprazole Inj IV SCH ×2 (08:30→17:55)
[2018-06-02] MEDS: HYDROcodone/Acetamin 10/325 tab ORAL PRN (08:30)
[2018-06-02] MEDS ORDERED: LR 1000ml ONE (09:00)
[2018-06-02] MEDS ORDERED: Propofol 200mg/20ml IV ONE (09:00)
[2018-06-02] MEDS: Thiamine 100mg tab ORAL SCH (09:00)
[2018-06-02] MEDS ORDERED: Lidocaine 1% MPF 10mg/ml 5ml ONE (09:00)
--- NOTE | 2018-06-02 09:00 | Pre-Procedure Note/Attestation ---
Pre-Procedure Note/Attestation Complete Prior to Procedure Planned Procedure: not applicable Procedure Narrative: egd Indications for Procedure Pre-Operative Diagnosis: gib Attestation I attest that I discussed the nature of the procedure; its benefits; risks and complications; and alternatives (and the risks and benefits of such alternatives ), prior to the procedure, with the patient (or the patient's legal customer field representative). I attest that, if there was a reasonable possibility of needing a blood transfusion, the patient (or the patient's legal customer field representative) was given the [facility] standardized written summary, pursuant to the Vishnu Bernardo Blood Safety Act ([place] Health and Safety Code # 1645, as amended). I attest that I re-evaluated the patient just prior to the surgery and that there has been no change in the patient's H&P, except as documented below: Melo Jimenez MD Jun 02, 2018 09:00
[2018-06-02] MEDS ORDERED: NS 500ML IVPB ONE (09:02)
[2018-06-02] MEDS ORDERED: Metoclopramide 10mg/2ml Inj IVP PRN (09:15)
[2018-06-02] MEDS ORDERED: Atropine Sulfate 0.4mg/ml inj IVP PRN (09:15)
[2018-06-02] MEDS ORDERED: Meperidine 50mg/ml Inj(FOR RIGORS ONLY) IVP PRN (09:15)
[2018-06-02] MEDS ORDERED: LORazepam Inj 2mg/ml 1ml IV PRN (09:15)
[2018-06-02] MEDS ORDERED: fentaNYL 100 mcg/2 mL IV PRN (09:15)
[2018-06-02] MEDS ORDERED: HYDROcodone/Acetamin 7.5/325 tab ORAL PRN (09:15)
[2018-06-02] MEDS ORDERED: Ketorolac 30mg Inj IV PRN ×2 (09:15)
[2018-06-02] MEDS ORDERED: Labetalol 5mg/ml 20ml vial IV PRN (09:15)
[2018-06-02] MEDS ORDERED: Hydromorphone 0.5mg/0.5ml inj IVP PRN (09:15)
[2018-06-02] MEDS ORDERED: HYDROcodone/Acetamin 5/325 tab ORAL PRN (09:15)
[2018-06-02] MEDS ORDERED: LR 1000ml 1,000 ML IVLG SCH (09:15)
[2018-06-02] MEDS ORDERED: DiphenhydrAMINE 50mg/ml Inj IVP PRN (09:15)
[2018-06-02] MEDS ORDERED: oxyCODONE HCL/Acetaminophen 5/325mg ORAL PRN (09:15)
[2018-06-02] MEDS ORDERED: Midazolam 2mg/2ml Inj IVP PRN (09:15)
--- NOTE | 2018-06-02 09:15 | Endoscopy Procedure Note ---
Endoscopy Procedure Note General Indication for Procedure: dysphagia Procedures Performed: EGD Operative Findings/Diagnosis: stricture Specimen: yes Pt Tolerated Procedure Well: Yes Estimated Blood Loss: none Anesthesia Anesthesiologist: [place] Anesthesia: MAC Inserted Devices Implant(s) used?: No GI Core Measures 50 yrs or older w/o bx or poly: Not Applicable 10yrs. F/U not recommended: Not Applicable Melo Jimenez MD Jun 02, 2018 09:15
--- NOTE | 2018-06-02 09:17 | Anethesia Preoperative Eval ---
Anesthesia Pre-op PMH/ROS General Date of Evaluation: Jun 02, 2018 Time of Evaluation: 08:41 Anesthesiologist: Ran ASA Score: ASA 3 Mallampati Score Class I : Soft palate, uvula, fauces, pillars visible Class II: Soft palate, uvula, fauces visible Class III: Soft palate, base of uvula visible Class IV: Only hard plate visible Mallampati Classification: Class II Surgeon: Tony Diagnosis: Abd Pain Surgical Procedure: EGD Anesthesia History: none Family History: no anesthesia problems Allergies: Coded Allergies: No Known Allergies (Unverified , 05/31/18) Medications: see eMAR Patient NPO?: Yes Past Medical History Gastrointestinal/Genitourinary: Reports: other - HH, Esophagael CA Anesthesia Pre-op Phys. Exam Physician Exam Last Vital Signs Date Time Temp Pulse Resp B/P (MAP) Pulse Ox O2 Delivery O2 Flow Rate FiO2 06/02/18 08:00 98.0 82 16 123/75 (91) 97 06/01/18 21:00 Room Air Constitutional: NAD Neurologic: CN 2-12 intact Cardiovascular: RRR Respiratory: CTA Gastrointestinal: S/NT/ND Airway Exam Mallampati Score: Class II MO: full ROM: full Teeth: intact Anesthesia Pre-op A/P Risk Assessment & Plan Assessment: ASA 3 Plan: TIVA Status Change Before Surgery: Forest Everett MD Jun 02, 2018 09:16
--- NOTE | 2018-06-02 09:18 | 48 Hour Post Anesthesia Eval ---
Post Anesthesia Evaluation Procedure: EGD Date of Evaluation: Jun 02, 2018 Time of Evaluation: 11:43 Blood Pressure Systolic: 117 0: 72 Pulse Rate: 73 Respiratory Rate: 18 Temperature (Fahrenheit): 98.2 O2 Sat by Pulse Oximetry: 100 Airway: patent Nausea: No Vomiting: No Pain Intensity: 2 Hydration Status: adequate Cardiopulmonary Status: Stable Mental Status/LOC: patient returned to baseline Follow-up Care/Observations: 0 Post-Anesthesia Complications: 0 Follow-up care needed: N/A Forest Tong MD Jun 02, 2018 09:18
--- NOTE | 2018-06-02 09:18 | Immediate Post-Op Evaluation ---
Immediate Post-Op Evalulation Immediate Post-Op Evalulation Procedure: EGD Date of Evaluation: Jun 02, 2018 Time of Evaluation: 09:34 IV Fluids: 200 LR Blood Products: 0 Estimated Blood Loss: 1 Urinary Output: 0 Blood Pressure Systolic: 100 Blood Pressure Diastolic: 61 Pulse Rate: 72 Respiratory Rate: 16 O2 Sat by Pulse Oximetry: 100 Temperature (Fahrenheit): 97.1 Pain Score (1-10): 2 Nausea: No Vomiting: No Complications 0 Patient Status: awake, reacts, patent, none Hydration Status: adequate Forest Tong MD Jun 02, 2018 09:18
[2018-06-02] MEDS: HYDROmorphone 1mg/ml Carpuject IVP PRN (10:13)
--- NOTE | 2018-06-02 10:26 | NUR ---
CASE MANAGEMENT:REVIEW 06/02/18 SI:UGIB. METABOLIC ENCEPHALOPATHY. ETOH ABUSE EGD(+) STRICTURE 97.2 69 16 107/68 98% ON RA IS: IV AMPICILLIN Q6HRS IV PROTONIX BID IVF@100/HR CARAFATE PO QID NORCO PO Q4HRS PRN : TELEMETRY STATUS DCP; CAME FROM HOME PLAN: START CLEAR LIQUIDS
--- NOTE | 2018-06-02 10:28 | General Progress Note ---
Assessment/Plan Assessment: #Acute blood loss anemia #Coffee ground emesis #Esophageal stricture #GERD - s/p EGD without active bleeding seen - continue PPI and Carafate - continue to monitor CBC - spoke with GI #Acute Metabolic encephalopathy, resolved #Etoh Abuse - Likely secondary to etoh abuse - Cont IVF, thiamine/folate #? TMJ dislocation - patient to be seen by OMFS today, spoke with Dr. Barrios Subjective Date patient seen: Jun 02, 2018 Time patient seen: 07:45 ROS Limited/Unobtainable: No Constitutional: Denies: chills, fever HEENT: Denies: eye pain Cardiovascular: Denies: chest pain Respiratory: Denies: cough Gastrointestinal/Abdominal: Denies: abdomen distended Genitourinary: Denies: burning Allergies: Coded Allergies: No Known Allergies (Unverified , 05/31/18) Subjective Medicine follow up for acute blood loss anemia, esophageal stricture, TMJ dislocation. Still with inability to close the mouth fully. EGD done today without active bleeding. Underwent dilation of esophageal stricture Objective Last 24 Hour Vital Signs Date Time Temp Pulse Resp B/P (MAP) Pulse Ox O2 Delivery O2 Flow Rate FiO2 06/02/18 09:45 97.2 69 16 107/68 98 Room Air 06/02/18 09:35 71 15 102/64 97 Room Air 06/02/18 09:32 73 18 100 06/02/18 09:31 72 16 100 06/02/18 09:30 72 12 102/61 99 Simple Mask 6 06/02/18 09:26 97.1 84 14 110/75 99 Simple Mask 6 06/02/18 08:00 98.0 82 16 123/75 (91) 97 06/02/18 04:00 81 06/02/18 04:00 98.2 90 16 129/86 (100) 97 06/02/18 00:00 102 06/02/18 00:00 98.0 99 18 135/84 (101) 98 06/01/18 21:00 Room Air 06/01/18 20:00 91 06/01/18 20:00 98.1 81 17 127/79 (95) 98 06/01/18 16:00 98.5 70 18 128/83 (98) 96 06/01/18 16:00 78 06/01/18 12:00 98.1 76 18 124/51 (75) 97 06/01/18 12:00 68 Intake and Output 06/01/18 06/02/18 18:59 06:59 Intake Total 1420 ml Output Total 500 ml Balance 920 ml Intake IV Total 1420 ml Output Urine Total 500 ml Height (Feet): 5 Height (Inches): 8.00 Weight (Pounds): 193 General Appearance: no apparent distress, alert EENT: other - Inability to fully close mouth, tenderness of bilateral TMJ Neck: normal alignment, supple Cardiovascular: normal peripheral pulses, normal rate, regular rhythm Respiratory/Chest: lungs clear, normal breath sounds Abdomen: non tender, soft Extremities: non-tender, normal inspection Neurologic: bone cooking operator II-XII grossly normal, no motor/sensory deficits, alert, oriented x 3, responsive, normal mood/affect Skin: normal pigmentation, warm/dry Rylan Gatica MD Jun 02, 2018 10:28
--- NOTE | 2018-06-02 13:22 | NUR ---
SWALLOW/SPEECH THERAPY NOTE: REFERRED BY DR METZGER (PRIMARY DR CROOK) FOR SWALLOW EVALUATION, SEE FULL REPORT IN ST CARE ACTIVITY SECTION. COMPLETED CHART REVIEW. DYSPHAGIA RISK FACTORS FOR THIS 33 Y.O.M.: ACUTE ALOC, MET ENCEPHALOPATHY, R/O GIB WAS VOMITTING COFFEE GROUNDS, POSSIBLE ASPIRATION (PER EMERGENCY MD R LL INFILTRATE WITH POOR INSPIRATION BUT RADIO REPORT NEGATIVE ACUTE FINDINGS AND HYPOVENTILATORY CHEST. ALCOHOL INTOXICATION, HEAD CT NEGATIVE H/O ESOPHAGEAL NECROSIS AND STRICTURE (NOT CANCER PER PT FRIEND GAVE THE WRONG TERM) and DILATED WITH SCOPE, HAS ESOPHAGITIS, AND NO ACTIVE BLEEDING PER EGD. HAD DILATION OF ESOPHAGUS IN [place] A YEAR AGO. HAS GERD AND PLACED PPI AND CARAFATE. 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 C/O ESOPHAGEAL DYSPHAGIA FOR 5 YEARS. ALSO C/O FOOD AND EVEN SMALL PILLS STICKING IN HIS THROAT FOR THE SAME AMOUNT OF TIME. SOCIAL: TRANSIENT WITH H/O ETOH ABUSE CURRENTLY ON CLEAR LIQUIDS BUT WAS ON REG TEXTURE FOODS AND THIN LIQUIDS PRIOR TO ADMIT. ALERT AND CONVERSANT BUT SPEECH LESS PRECISE AND CLEAR DUE TO MANDIBLE PROTRUDING FORWARD, UNABLE TO CLOSE HIS MOUTH/LIPS. INITIAL IMPRESSIONS: QUESTIONABLE DEGREE OF OROPHARYNGEAL DYSPHAGIA DUE TO TMJ DISLOCATION AND PHARYNGEAL RESIDUE (FOOD/SMALL PILLS). ADEQUATE DENTITION AND LIP/TONGUE STRENGTH, ROM, CONTROL BUT NEEDS TO KEEP MOUTH OPEN AT REST DUE TO TMJ PROBLEM. NEEDS TO DRINK VIA POURING LIQUID FROM BOTTLE INTO HIS MOUTH TO AVOID ORAL SPILLAGE. NO OVERT ASP OBSERVED BUT HE STATES HE COUGHS INCONSISTENTLY AT TIMES WITH SEQUENTIAL SIPS OF WATER (MAY ALSO HAVE RLL INFILTRATE PER ER MD) AND FAIR HYOLARYNGEAL EXCURSION. WILL HOLD ON SOLIDS/PUREEDS SINCE ON CLEAR LIQUIDS AND UNTIL MOD BARIUM SWALLOW STUDY TODAY OR TOMORROW (OK PER DR VENTURA). ADEQUATE INTAKE ON CLEAR LIQUID DIET RECOMMENDATIONS MOD BARIUM SWALLOW STUDY TODAY OR TOMORROW TO FURTHER ASSESS SWALLOW, DETERMINE SILENT ASP RISK/ETIOLOGY, AND ATTEMPT TRIAL TX TECHNIQUES. CONTINUE WITH CLEAR LIQUIDS USING POSTED ASP/REFLUX PRECAUTIONS (ONE SMALL SIP AT A TIME WITH EFFORTFUL BREATH HOLD AIRWAY PROTECTION STRATEGY). EDUCATED/TRAINED PATIENT/RN IN POSTED ASP PREC D/W DR VENTURA WHO AGREED WITH RECOMMENDATIONS AND SOLID/PUREED/LIQ TRIALS FOR VIDEOSWALLOW STUDY.
--- NOTE | 2018-06-02 13:37 | NUR ---
SWALLOW/SPEECH THERAPY NOTE: UPDATED SWALLOW EVALUATION REFERRED BY DR METZGER (PRIMARY DR CROOK) FOR SWALLOW EVALUATION, SEE FULL REPORT IN ST CARE ACTIVITY SECTION. COMPLETED CHART REVIEW. DYSPHAGIA RISK FACTORS FOR THIS 33 Y.O.M.: ACUTE ALOC, MET ENCEPHALOPATHY, R/O GIB WAS VOMITTING COFFEE GROUNDS, POSSIBLE ASPIRATION (PER EMERGENCY MD R LL INFILTRATE WITH POOR INSPIRATION BUT RADIO REPORT NEGATIVE ACUTE FINDINGS AND HYPOVENTILATORY CHEST. ALCOHOL INTOXICATION, HEAD CT NEGATIVE H/O ESOPHAGEAL NECROSIS AND STRICTURE (NOT CANCER PER PT FRIEND GAVE THE WRONG TERM) and DILATED WITH SCOPE, HAS ESOPHAGITIS, AND NO ACTIVE BLEEDING PER EGD. HAD DILATION OF ESOPHAGUS IN [place] A YEAR AGO. HAS GERD AND PLACED PPI AND CARAFATE. 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 C/O ESOPHAGEAL DYSPHAGIA FOR 5 YEARS. ALSO C/O FOOD AND EVEN SMALL PILLS STICKING IN HIS THROAT (more like upper esophagus) FOR 11 MONTHS. SOCIAL: TRANSIENT WITH H/O ETOH ABUSE CURRENTLY ON CLEAR LIQUIDS BUT WAS ON REG TEXTURE FOODS AND THIN LIQUIDS PRIOR TO ADMIT. ALERT AND CONVERSANT BUT SPEECH LESS PRECISE AND CLEAR DUE TO MANDIBLE PROTRUDING FORWARD, UNABLE TO CLOSE HIS MOUTH/LIPS. INITIAL IMPRESSIONS: QUESTIONABLE DEGREE OF OROPHARYNGEAL DYSPHAGIA DUE TO TMJ DISLOCATION AND PHARYNGEAL RESIDUE (FOOD/SMALL PILLS). C/O UPPER ESOPHAGEAL DYSPHAGIA ADEQUATE DENTITION AND LIP/TONGUE STRENGTH, ROM, CONTROL BUT NEEDS TO KEEP MOUTH OPEN AT REST DUE TO TMJ PROBLEM. NEEDS TO DRINK VIA POURING LIQUID FROM BOTTLE INTO HIS MOUTH TO AVOID ORAL SPILLAGE. NO OVERT ASP OBSERVED BUT HE STATES HE COUGHS INCONSISTENTLY AT TIMES WITH SEQUENTIAL SIPS OF WATER (MAY ALSO HAVE RLL INFILTRATE PER ER MD) AND FAIR HYOLARYNGEAL EXCURSION. PATIENT REPORTED ESOPHAGEAL RESIDUE "GETS STUCK" OF FOOD/SMALL PILLS FOR 11 MONTHS (INITIALLY SAID STUCK IN THROAT BUT POINTS BELOW HIS LARYNX MORE TOWARD HIS UPPER ESOPHAGUS). WILL HOLD ON SOLIDS/PUREEDS SINCE ON CLEAR LIQUIDS AND UNTIL MOD BARIUM SWALLOW STUDY TODAY OR TOMORROW (OK PER DR VENTURA). ADEQUATE INTAKE ON CLEAR LIQUID DIET RECOMMENDATIONS MOD BARIUM SWALLOW STUDY TODAY OR TOMORROW TO FURTHER ASSESS SWALLOW, DETERMINE SILENT ASP RISK/ETIOLOGY, AND ATTEMPT TRIAL TX TECHNIQUES. CONTINUE WITH CLEAR LIQUIDS USING POSTED ASP/REFLUX PRECAUTIONS (ONE SMALL SIP AT A TIME WITH EFFORTFUL BREATH HOLD AIRWAY PROTECTION STRATEGY). CONSIDER ALSO SENDING ENSURE VANILLA FOR NUTRITION. EDUCATED/TRAINED PATIENT/RN IN POSTED ASP PREC D/W DR VENTURA WHO AGREED WITH RECOMMENDATIONS AND SOLID/PUREED/LIQ TRIALS FOR VIDEOSWALLOW STUDY.
[2018-06-02] MEDS: Sucralfate 1gm tab ORAL SCH ×3 (14:36→21:47)
[2018-06-02] MEDS: LORazepam 1mg tab ORAL SCH ×2 (14:36→18:02)
--- NOTE | 2018-06-02 16:15 | Procedure Note ---
DATE OF PROCEDURE: 06/02/2018 SURGEON: Melo Jimenez M.D. REFERRING PHYSICIAN: Deya Kelly M.D. PROCEDURE: Upper endoscopy with biopsy. ANESTHESIA: Per Dr. Tong. INSTRUMENT: Olympus adult flexible upper endoscope. INDICATION: Dysphagia. REASON FOR PROCEDURE: The procedure, risks, benefits, and possible consequences, including hemorrhage, aspiration, perforation and infection, and alternative treatments, were explained to the patient/legal guardian by Dr. Melo Jimenez and the patient/legal guardian understood and accepted these risks. PROCEDURE IN DETAIL: After informed consent was obtained and the patient was adequately sedated, Olympus upper endoscope was advanced from the mouth to the second portion of the duodenum and retroflexion was performed in the stomach. The patient has evidence of 4 cm of hiatal hernia. There was evidence of distal esophagitis ulcerated with some stricture. We were able to pass the scope through with some minimal pressure. Some bleeding after the scope was passed through suggesting good dilation with the scope alone. The patient had some mucosal changes suggestive but not classical for eosinophilic esophagitis. Biopsy from distal esophagus was obtained. SUMMARY OF FINDINGS: 1. Distal esophageal stricture, ulcerative esophagitis. 2. Hiatal hernia 4 cm. RECOMMENDATIONS: 1. Follow biopsy results. 2. The patient will need to be followed as an outpatient for possible eosinophilic esophagitis if the biopsy is confirming it. Meanwhile, we will put the patient on Protonix and Carafate and start him on liquid diet and advance as tolerated. I want to thank, Dr. Kelly, for this kind referral. Melo Jimenez M.D. DR: MERRICK JOB#: [id number] CC:
[2018-06-02] MEDS: oxyCODONE HCL/Acetaminophen 5/325mg ORAL PRN (17:03)
--- NOTE | 2018-06-02 19:25 | NUR ---
HAND-OFF: Report given to LOTUS Knott. No acute s/s of distress.
--- NOTE | 2018-06-02 19:30 | NUR ---
NURSE NOTES: Received report from LOTUS Castellon. Patient in bed awake showing no signs of acute distress. Respiration even and non labored on room air. No SOB noted. IV line patent and intact. Bed alarm on, wheels locked and in lowest position. Call light within reach. All needs attended and met. Will continue to monitor.
[2018-06-02] MEDS: Hydromorphone 0.5mg/0.5ml inj IVP PRN (21:48)
[2018-06-03] VITALS: BP 101/57
[2018-06-03] MEDS: Ampicillin/Sulbactam Sod 3 GM in NS 110 ML IVPB SCH ×2 (00:18→07:51)
[2018-06-03 04:00] VITALS: BP 125/84
[2018-06-03 07:19] LABS: BASOPHILS % (AUTO) 1.7 % (0.0-2.0); EOSINOPHILS % (AUTO) 6.3 % (0.0-3.0); HEMATOCRIT 28.9 % (42.0-52.0); HEMOGLOBIN 8.9 G/DL (14.2-18.0); LYMPHOCYTES % (AUTO) 33.7 % (20.0-45.0); MEAN CORPUSCULAR VOLUME 72 FL (80-99); MONOCYTES % (AUTO) 7.8 % (1.0-10.0); NEUTROPHILS % (AUTO) 50.5 % (45.0-75.0); PLATELET COUNT 361 K/UL (150-450); RED BLOOD COUNT 4.01 M/UL (4.70-6.10); RED CELL DISTRIBUTION WIDTH 15.8 % (11.6-14.8)
--- NOTE | 2018-06-03 07:44 | General Progress Note ---
Assessment/Plan Problem List: (1) Esophagitis ICD Codes: K20.9 - Esophagitis, unspecified SNOMED: 19756514 (2) Upper gastrointestinal bleed ICD Codes: K92.2 - Gastrointestinal hemorrhage, unspecified SNOMED: 35143278 (3) ETOH abuse ICD Codes: F10.10 - Alcohol abuse, uncomplicated SNOMED: 96500697 Plan: s/p EGD and dilatation with the scope yesterday ppi and carafate will change protonix to po advance to full liquid diet dc planning per primary team Subjective ROS Limited/Unobtainable: Yes Allergies: Coded Allergies: No Known Allergies (Unverified , 05/31/18) Objective Last 24 Hour Vital Signs Date Time Temp Pulse Resp B/P (MAP) Pulse Ox O2 Delivery O2 Flow Rate FiO2 06/03/18 04:00 62 06/03/18 04:00 97.9 76 19 125/84 (98) 98 06/03/18 00:00 97.9 71 19 101/57 (72) 97 06/03/18 00:00 85 06/02/18 21:00 Room Air 06/02/18 20:00 90 06/02/18 20:00 98.7 77 19 118/70 (86) 98 06/02/18 16:00 97.3 88 21 131/79 (96) 98 06/02/18 16:00 91 06/02/18 12:00 76 06/02/18 12:00 97.3 86 20 116/78 (91) 97 06/02/18 09:45 97.2 69 16 107/68 98 Room Air 06/02/18 09:35 71 15 102/64 97 Room Air 06/02/18 09:32 73 18 100 06/02/18 09:31 72 16 100 06/02/18 09:30 72 12 102/61 99 Simple Mask 6 06/02/18 09:26 97.1 84 14 110/75 99 Simple Mask 6 06/02/18 09:00 Room Air 06/02/18 08:00 98.0 82 16 123/75 (91) 97 06/02/18 08:00 81 Intake and Output 06/02/18 06/03/18 19:00 07:00 Intake Total 200 ml 1031.5 ml Output Total 600 ml 1000 ml Balance -400 ml 31.5 ml Intake IV Total 200 ml 1031.5 ml Output Urine Total 600 ml 1000 ml Estimated Blood Loss 0 ml # Voids 2 3 Laboratory Tests 06/03/18 06:47: White Blood Count 5.0, Red Blood Count 4.01L, Hemoglobin 8.9L, Hematocrit 28.9L , Mean Corpuscular Volume 72L, Mean Corpuscular Hemoglobin 22.1L, Mean Corpuscular Hemoglobin Concent 30.7L, Red Cell Distribution Width 15.8H, Platelet Count 361, Mean Platelet Volume 6.1L, Neutrophils (%) (Auto) 50.5, Lymphocytes (%) (Auto) 33.7, Monocytes (%) (Auto) 7.8, Eosinophils (%) (Auto) 6.3H, Basophils (%) (Auto) 1.7, Sodium Level [Pending], Potassium Level [Pending ], Chloride Level [Pending], Carbon Dioxide Level [Pending], Blood Urea Nitrogen [Pending], Creatinine [Pending], Estimat Glomerular Filtration Rate [ Pending], Glucose Level [Pending], Calcium Level [Pending], Magnesium Level [ Pending] Height (Feet): 5 Height (Inches): 8.00 Weight (Pounds): 193 General Appearance: alert EENT: normal ENT inspection Neck: supple Cardiovascular: normal rate Respiratory/Chest: lungs clear Abdomen: normal bowel sounds, non tender, soft Extremities: non-tender Melo Jimenez MD Jun 03, 2018 07:44
--- NOTE | 2018-06-03 07:53 | NUR ---
HAND-OFF: Report given to LOTUS Prajapati. Patient stable. No signs of acute distress noted.
[2018-06-03 08:00] VITALS: BP 125/74
[2018-06-03 08:06] LABS: ANION GAP 7 mmol/L (5-15); BLOOD UREA NITROGEN 11 mg/dL (7-18); CALCIUM 8.4 MG/DL (8.5-10.1); CARBON DIOXIDE 27 MMOL/L (21-32); CHLORIDE 108 MMOL/L (98-107); CREATININE 1.1 MG/DL (0.55-1.30); POTASSIUM 3.8 MMOL/L (3.5-5.1); SODIUM 142 MMOL/L (136-145)
--- NOTE | 2018-06-03 08:41 | NUR ---
NURSE NOTES: Received report from Alo GAUTAM.
[2018-06-03] MEDS: Thiamine 100mg tab ORAL SCH (08:59)
[2018-06-03] MEDS: Sucralfate 1gm tab ORAL SCH ×4 (08:59→20:56)
[2018-06-03] MEDS: LORazepam 1mg tab ORAL SCH ×3 (09:00→18:31)
[2018-06-03] MEDS: oxyCODONE HCL/Acetaminophen 5/325mg ORAL PRN (09:35)
--- NOTE | 2018-06-03 10:20 | General Progress Note ---
Assessment/Plan Assessment: #Acute blood loss anemia #Coffee ground emesis #Esophageal stricture #GERD - s/p EGD without active bleeding seen - continue PPI and Carafate - continue to monitor CBC #Acute Metabolic encephalopathy, resolved #Etoh Abuse - Likely secondary to etoh abuse - Cont IVF, thiamine/folate # TMJ dislocation - patient seen by Oral Surgery, unable to do bedside reduction - possible reduction in OR this week - continue supportive care Subjective Date patient seen: Jun 03, 2018 Time patient seen: 09:45 ROS Limited/Unobtainable: No Cardiovascular: Denies: chest pain Respiratory: Denies: cough Gastrointestinal/Abdominal: Denies: abdomen distended Genitourinary: Denies: burning Neurologic/Psychiatric: Denies: anxiety Allergies: Coded Allergies: No Known Allergies (Unverified , 05/31/18) Subjective Medicine follow up for acute blood loss anemia, esophageal stricture, TMJ dislocation. Still with inability to fully close mouth. Spoke with Oral Surgery , was unable to reduce at bedside. Objective Last 24 Hour Vital Signs Date Time Temp Pulse Resp B/P (MAP) Pulse Ox O2 Delivery O2 Flow Rate FiO2 06/03/18 04:00 62 06/03/18 04:00 97.9 76 19 125/84 (98) 98 06/03/18 00:00 97.9 71 19 101/57 (72) 97 06/03/18 00:00 85 06/02/18 21:00 Room Air 06/02/18 20:00 90 06/02/18 20:00 98.7 77 19 118/70 (86) 98 06/02/18 16:00 97.3 88 21 131/79 (96) 98 06/02/18 16:00 91 06/02/18 12:00 76 06/02/18 12:00 97.3 86 20 116/78 (91) 97 Intake and Output 06/02/18 06/03/18 19:00 07:00 Intake Total 200 ml 1031.5 ml Output Total 600 ml 1000 ml Balance -400 ml 31.5 ml Intake IV Total 200 ml 1031.5 ml Output Urine Total 600 ml 1000 ml Estimated Blood Loss 0 ml # Voids 2 3 Laboratory Tests 06/03/18 06:47: White Blood Count 5.0, Red Blood Count 4.01L, Hemoglobin 8.9L, Hematocrit 28.9L , Mean Corpuscular Volume 72L, Mean Corpuscular Hemoglobin 22.1L, Mean Corpuscular Hemoglobin Concent 30.7L, Red Cell Distribution Width 15.8H, Platelet Count 361, Mean Platelet Volume 6.1L, Neutrophils (%) (Auto) 50.5, Lymphocytes (%) (Auto) 33.7, Monocytes (%) (Auto) 7.8, Eosinophils (%) (Auto) 6.3H, Basophils (%) (Auto) 1.7, Sodium Level 142, Potassium Level 3.8, Chloride Level 108H, Carbon Dioxide Level 27, Anion Gap 7, Blood Urea Nitrogen 11, Creatinine 1.1, Estimat Glomerular Filtration Rate > 60, Glucose Level 103, Calcium Level 8.4L, Magnesium Level 2.1 Height (Feet): 5 Height (Inches): 8.00 Weight (Pounds): 193 General Appearance: no apparent distress, alert EENT: PERRL/EOMI, normal ENT inspection Neck: normal alignment, supple Cardiovascular: normal rate, regular rhythm Respiratory/Chest: lungs clear, normal breath sounds Abdomen: non tender, soft Rylan Gatica MD Jun 03, 2018 10:20
--- NOTE | 2018-06-03 11:16 | NUR ---
CASE MANAGEMENT:REVIEW 06/03/18 SI:UGIB. ASPIRATION PNA. DYSPHAGIA TMJ DISLOCATION S/P EGD(+) ESOPHAGEAL STRICTURE AND ULCERATIVE ESOPHAGITIS 97.7 78 20 125/74 100% ON RA H/H-8.9/28.9 IS: IVF@100/HR PROTONIX PO Q12 CARAFATE PO QID ATIVAN PO TID IV DILAUDID Q6HRS PRN : TELEMETRY STATUS DCP: FROM HOME PLAN: SEEN BY ORAL SURGEON WHO WAS UNABLE TO REDUCE TMJ DISLOCATION AT BEDSIDE ADVANCE DIET FROM CLEARS TO FULL LIQUID DIET ~
--- NOTE | 2018-06-03 11:32 | NUR ---
P.T Note: P.T evaluation completed. Pt is currently baseline independent with ADL/functional mobilities and gait/locomotion. Current functional status does not warrant skilled P.T service at this time. [facility] P[facility] services. Thank you for this referral.
[2018-06-03 12:00] VITALS: BP 134/91
--- NOTE | 2018-06-03 12:32 | NUR ---
SWALLOW/SPEECH THERAPY NOTE: MODIFIED BARIUM SWALLOW STUDY COMPLETED, SEE FULL REPORT IN ST CARE ACTIVITY SECTION. INITIAL AND GROSS IMPRESSIONS: SIGNIFICANT ESOPHAGEAL, MILD-MOD PHARYNGEAL, AND MILD ORAL DYSPHAGIA WITH VARIABLY INCREASED TRANSIT TIMES (WORSE IN THE ESOPHAGEAL AND THEN PHARYNGEAL PHASES OF THE SWALLOW) ORAL PREP AND ORAL PHASE: GROSSLY FUNCTIONAL BUT LIPS AND MOUTH OPEN DUE TO JAW DISLOCATED AND JUTS FORWARD BUT NO ORAL SPILLAGE WITH TSP/CUP. TONGUE AP MOVEMENT FUNCTIONAL BUT BEHAVIORALLY USING PIECEMEAL DEGLUTITION AND SMALL AMOUNTS (TSP) TO AVOID CHOKING AND BACKFLOW FROM HIS PHARYNX BUT MOSTLY FROM HIS ESOPHAGUS. MIN ISSUE WITH BOLUS HOLD WITH THIN LIQUID ONCE BUT NOT SIGNIFICANT. PHARYNGEAL PHASE: APPEARS TO HAVE MILD-MODERATE ISSUES REDUCED TONGUE BASE RETRACTION, HYOLARYNGEAL EXCURSION, AND REDUCED OPENING OF PHARYNGOESOPHAGEAL SEGMENT OPENING PARTICULARLY WITH THICKER CONSISTENCIES LIKE HONEY THICK LIQUID TSP AND PUREED TSP AND SEQUENTIAL SIPS OF THIN LIQUIDS). DELAY IN INITIATING FINAL SWALLOW OF THIN LIQUIDS SEQUENTIAL SIPS AND ALMOST ASPIRATED (PREVENTED BY BRICKLAYER TENDER CUE TO HOLD BREATH WITH EFFORT). PROBLEMS MOSTLY LIKELY CAUSED OR COMPOUNDED BY ESOPHAGEAL PROBLEMS AND TMJ JAW ISSUES. ESOPHAGEAL PHASE (SEE RADIOLOGIST'S REPORT) APPARENT PERSISTENT GASTROESOPHAGEAL STRICTURE WITH ALL CONSISTENCIES WORSE WITH THICKER CONSISTENCIES (MOSTLY PUDDING TSP BUT ALSO WITH HONEY THICK TSP) CAUSING RETROGRADE BACKFLOW THROUGH THE PHARYNGOESOPHAGEAL SEGMENT OPENING AND AT TIMES MIN TO NO ESOPHAGEAL CLEARANCE (EVENTUALLY CLEARS WITH MORE TIME AND LIQUID WASHES) NO ASPIRATION BUT HAS RISK IF PRECAUTIONS NOT USED. TRACE LARYNGEAL PENETRATION MOSTLY WITH THIN LIQUIDS SEQUENTIAL SIPS W/O COUGH ABOVE VOCAL FOLDS WITH EJECTION AND LIKELY DUE TO ESOPHAGEAL STRICTURE. BENEFITS FROM THIN/NECTAR THICK LIQUIDS TSP LEVEL OR SMALL SIP VIA CUP WITH HARD SWALLOW, EFFORTFUL BREATH HOLD UPRIGHT FOR 20-30 MINUTES (REFLUX PRECAUTIONS). MOVING HEAD/JAW FORWARD ASSISTED WITH CLEARING THE LAST SWALLOW OF THIN LIQUIDS WHEN HE COMPLETED SEQUENTIAL SIPS. RECOMMENDATIONS: CONTINUE WITH PO BUT UPGRADE TO BLAND (ANTI-REFLUX) LIQUIFIED PUREED LIKE THIN OR NECTAR THICK LIQUIDS (TSP/SMALL SIP VIA CUP) USING POSTED AND UPDATED ASPIRATION AND REFLUX PRECAUTIONS AND SUPERVISION. EDUCATED/TRAINED PT/RN IN POSTED PRECAUTIONS. DYSPHAGIA MANAGEMENT/TX (SEE REPORT AND DETAILS ON ALL AREAS OF DEFICIT TO FOLLOW) F/UP WITH GI REGARDING ESOPHAGEAL STRICTURE (DILATION, STENT?, GERD MEDS, BLAND DIET SINCE HE IS VARIABLY COMPLIANT WITH DIET) F/UP WITH ENT REGARDING JAW (READJUSTMENT AFTER MUSCLES RELAXED) LTG: SAFE/EFFICIENT/ADEQUATE INTAKE OF LEAST RESTRICTED DIET/LIQUIDS W/O OVERT ASPIRATION/REFLUX TENTATIVE STG: PATIENT WILL CONSUME BLAND (ANTI REFLUX DIET) >75% OF LIQUIFIED PUREED LIKE THIN/NECTAR THICK LIQ DIET AND ADDITIONAL INTAKE OF ENSURE ALSO RECOMMENDED USING POSTED ASPIRATION/REFLUX PRECAUTIONS AND SWALLOW STRATEGIES W/O OVERT ASPIRATION/REFLUX 90% OF THE TIME. Addendum: 06/04/18 at 1104 by ELLIS BARNES BRICKLAYER TENDER SUBLUXED VS DISLOCATED RIGHT MANDIBULAR CONDYLE, DISLOCATED LEFT MANDIBULAR CONDYLES.
[2018-06-03] MEDS: Hydromorphone 0.5mg/0.5ml inj IVP PRN ×2 (12:49→21:05)
[2018-06-03 16:00] VITALS: BP 126/73
--- NOTE | 2018-06-03 16:40 | NUR ---
Social Service Note SW met with patient to assess for ETOH dependency resources and to screen for follow up care. Patient is alert, oriented and verbally responsive. Patient denies ETOH dependency and was not receptive to resources. Patient states the reason for admission is due to his lock jaw. Patient states his lock jaw occurred years ago and received treatment outside of [place]. Patient states he has resided in [facility] for the past 5 years. Patient has been unable to provide insurance information. SW requested SS# and health plan information. Patient states he was born in [place] and is not a [place] citizen. Patient states he has travelers insurance and a friend will provide card information by tomorrow. SW inquired if patient went by any other alias, and patient replied no. SW discussed impending dc planning with community care clinics if patient is unable to obtain insurance information. Will continue to monitor and follow up.
--- NOTE | 2018-06-03 17:24 | General Progress Note ---
Assessment/Plan Status: stable Assessment: TMJ dislocation Plan: Unclear etiology. Will try benzo as muscle relaxation and then obtain Xray. Unsure if patient is faking it and perhaps has Munchausens Subjective Date patient seen: Jun 02, 2018 Time patient seen: 12:30 Constitutional: Denies: no symptoms, chills, diaphoresis, fever, malaise, weakness, other HEENT: Reports: throat pain, mouth pain Cardiovascular: Denies: no symptoms, chest pain, edema, irregular heart rate, lightheadedness, palpitations, syncope, other Respiratory: Denies: no symptoms, cough, orthopnea, shortness of breath, SOB with excertion, SOB at rest, sputum, stridor, wheezing, other Gastrointestinal/Abdominal: Denies: no symptoms, abdomen distended, abdominal pain, black stools, tarry stools, blood in stool, constipated, diarrhea, difficulty swallowing, nausea, poor appetite, poor fluid intake, rectal bleeding , vomiting, other Genitourinary: Denies: no symptoms, burning, discharge, frequency, flank pain, hematuria, incontinence, pain, urgency, other Neurologic/Psychiatric: Denies: no symptoms, anxiety, depressed, emotional problems, headache, numbness, paresthesia, pre-existing deficit, seizure, tingling, tremors, weakness, other Endocrine: Denies: no symptoms, excessive sweating, flushing, intolerance to cold, intolerance to heat, increased hunger, increased thirst, increased urine, unexplained weight gain, unexplained weight loss, other Hematologic/Lymphatic: Denies: no symptoms, anemia, easy bleeding, easy bruising, other Allergies: Coded Allergies: No Known Allergies (Unverified , 05/31/18) Subjective Patient is being seen for possible TMJ dislocation. He came to the ER with bloody emesis and then was admitted and an EGD was performed. When he first came in he states that when his temperature was being taken his mandible dislocated. This has happened to him before. He does not appear to be in any pain but verbally states he is. He states it has been like this for days now. No dysphpnia or dyspnea. He is on pain medication. He has not used muscle relaxant. He had an EGD and there was no jaw dislocation at time of procedure and findings from that included esophagitis and stricture. Objective Last 24 Hour Vital Signs Date Time Temp Pulse Resp B/P (MAP) Pulse Ox O2 Delivery O2 Flow Rate FiO2 06/03/18 12:00 97.3 74 20 134/91 (105) 100 06/03/18 11:55 80 06/03/18 09:00 Room Air 06/03/18 08:00 97.7 78 20 125/74 (91) 100 06/03/18 07:46 66 06/03/18 04:00 62 06/03/18 04:00 97.9 76 19 125/84 (98) 98 06/03/18 00:00 97.9 71 19 101/57 (72) 97 06/03/18 00:00 85 06/02/18 21:00 Room Air 06/02/18 20:00 90 06/02/18 20:00 98.7 77 19 118/70 (86) 98 Intake and Output 06/02/18 06/03/18 18:59 06:59 Intake Total 200 ml 1031.5 ml Output Total 600 ml 1000 ml Balance -400 ml 31.5 ml IV Total 200 ml 1031.5 ml Output Urine Total 600 ml 1000 ml Estimated Blood Loss 0 ml # Voids 2 3 Laboratory Tests 06/03/18 06:47: White Blood Count 5.0, Red Blood Count 4.01L, Hemoglobin 8.9L, Hematocrit 28.9L , Mean Corpuscular Volume 72L, Mean Corpuscular Hemoglobin 22.1L, Mean Corpuscular Hemoglobin Concent 30.7L, Red Cell Distribution Width 15.8H, Platelet Count 361, Mean Platelet Volume 6.1L, Neutrophils (%) (Auto) 50.5, Lymphocytes (%) (Auto) 33.7, Monocytes (%) (Auto) 7.8, Eosinophils (%) (Auto) 6.3H, Basophils (%) (Auto) 1.7, Sodium Level 142, Potassium Level 3.8, Chloride Level 108H, Carbon Dioxide Level 27, Anion Gap 7, Blood Urea Nitrogen 11, Creatinine 1.1, Estimat Glomerular Filtration Rate > 60, Glucose Level 103, Calcium Level 8.4L, Magnesium Level 2.1 Height (Feet): 5 Height (Inches): 8.00 Weight (Pounds): 193 General Appearance: WD/WN, no apparent distress, alert EENT: PERRL/EOMI, normal ENT inspection, pharynx normal, other - unable to close mandible. No lateral displacement. Objective After verbal consent was obtained I attempted to apply inferior then posterior traction with the patient flap and my fingers wrapped and on his teeth .There was no movement of the mandible. Unable to obtain occlusion Ryan Barrios MD Jun 03, 2018 17:24
--- NOTE | 2018-06-03 19:10 | NUR ---
NURSE NOTES: Received report from Benji Castillo RN. Patient is awake in bed, A/O x4. Sinus rhythm on classroom monitor. No s/s of acute distress noted. Saturating well on room air. Right hand 20g IV running NS @ 100 cc/hr, intact and patent. Bed locked in lowest position with side rails up x2. Call light left within reach. Will continue to monitor.
--- NOTE | 2018-06-03 19:23 | NUR ---
HAND-OFF: Report given to Anne Mcnamara RN. Pt. remain stable. Endorsed to call Dr. Barrios for xray result of the jaw.
[2018-06-03 20:00] VITALS: BP 132/61
[2018-06-04] VITALS: BP 121/67
[2018-06-04 04:00] VITALS: BP 122/84
--- NOTE | 2018-06-04 07:50 | NUR ---
HAND-OFF: Report given to Jaden Lomas RN.
--- NOTE | 2018-06-04 07:51 | NUR ---
NURSE NOTES: Received shift report from LOTUS Prescott. The patient was sleeping on the bed without acute discomfort or shortness of breath. The patient's bed was in the lowest position, call light in reach, and fall and aspiration precaution reinforced. Will continue plan of care.
[2018-06-04 08:00] VITALS: BP 130/88
[2018-06-04] MEDS: Sucralfate 1gm tab ORAL SCH ×2 (08:43→12:20)
[2018-06-04] MEDS: Thiamine 100mg tab ORAL SCH (08:43)
[2018-06-04] MEDS: LORazepam 1mg tab ORAL SCH ×2 (08:43→12:20)
--- NOTE | 2018-06-04 08:55 | NUR ---
RD ASSESSMENT & RECOMMENDATIONS SEE CARE ACTIVITY FOR COMPLETE ASSESSMENT DAILY ESTIMATED NEEDS: Needs based on General, overweight 74kg adj 25-30 kcals/kg 8487-1310 total kcals .8-1 g protein/kg 59-74 g total protein 25-30 mL/kg 0334-4965 total fluid mLs NUTRITION DIAGNOSIS: 1) Altered nutrition related lab values r/t acute blood loss anemia, ETOH use as evidenced by Hgb 8.9, serum ETOH on adm 461. CURRENT DIET: Regular, thin/ NTL liquids PO DIET RECOMMENDATIONS: BLAND/SOFT DIET (texture per BLANKING MACHINE OPERATOR) ADDITIONAL RECOMMENDATIONS: 1) Clarification for diet texture If pt is on full liquid, rec Ensure BID in b/w meals If regular texture, rec to D/C Ensure and monitor po intake 2) Obtain a standing weight as able 3) Cont Folate/ MVI/ VIT B1
--- NOTE | 2018-06-04 10:00 | Diagnostic Imaging Report ---
Indication: Unable to close mouth, pain Technique: 4 views of the mandible Comparison: none Findings: Exam is limited due to patient inability to close mouth. The the right mandibular condyle is at the anterior edge of the condylar eminence. The left mandibular condyle appears to project just beyond the contour eminence and is likely dislocated. No definite fractures. Impression: Subluxed versus dislocated right mandibular condyle. Dislocated left mandibular condyles. No acute bony trauma Findings discussed by phone with Dr. Mayes at the time of interpretation
[2018-06-04 12:00] VITALS: BP 129/93
--- NOTE | 2018-06-04 12:03 | NUR ---
UPDATED SWALLOW/SPEECH THERAPY NOTE: MODIFIED BARIUM SWALLOW STUDY COMPLETED, SEE FULL REPORT IN ST CARE ACTIVITY SECTION. TRIALS OF BARIUM IN LATERAL VIEW THIN LIQUIDS: TSP, TSP, CUP, CUP SEQUENTIAL NECTAR THICK LIQUIDS: TSP, CUP (NOT SEQUENTIAL TOO DIFFICULT) HONEY THICK LIQUID: TSP PUREED: TSP AP VIEW ONLY PUREED TSP INITIAL IMPRESSIONS: MILD-MOD ORAL PREP/ORAL, MILD-MOD PHARYNGEAL, AND SEVERE ESOPHAGEAL DYSPHAGIA WITH VARIABLY INCREASED TRANSIT TIMES (WORSE IN THE ESOPHAGEAL PHASES OF THE SWALLOW) COMPOUNDED BY DISLOCATED JAW. ORAL PREP AND ORAL PHASE: LIPS AND MOUTH OPEN AT REST DUE TO JAW DISLOCATION BUT NO ORAL SPILLAGE WITH TSP/CUP. AP TONGUE MOVEMENT VERY SLOW WITH PUREED AND HAD PIECEMEAL DEGLUTITION (5 TIMES) TO CLEAR TSP BOLUS POSSIBLY BEHAVIORAL VERSUS RELATED TO JAW POSITION. PHARYNGEAL PHASE: APPEARS TO HAVE MILD-MODERATELY PHARYNGEAL SWALLOW, REDUCED TONGUE BASE RETRACTION, HYOLARYNGEAL EXCURSION, AND REDUCED OPENING OF PHARYNGOESOPHAGEAL SEGMENT OPENING PARTICULARLY WITH THICKER CONSISTENCIES LIKE HONEY THICK LIQUID TSP AND PUREED TSP AND SEQUENTIAL SIPS OF THIN LIQUIDS. DEFICITS PHARYNGEAL STRIPPING WAVE ALSO NOTED. DELAY IN INITIATING FINAL SWALLOW OF THIN LIQUIDS SEQUENTIAL SIPS AND ALMOST ASPIRATED (PREVENTED BY HEAD OF SALES CUE TO HOLD BREATH WITH EFFORT). PATIENT ABLE TO INITIATE AND CLEAR BOLUS 3 TIMES BY MOVING HIS JAW AND HEAD FORWARD TO OPEN UP THE PHARYNGEAL ESOPHAGEAL SEGMENT. PROBLEMS MAY BE RELATED OR COMPOUNDED BY ESOPHAGEAL PROBLEMS AND JAW DISLOCATION AND POSITION. MILD PHARYNGEAL BACKFLOW (FROM VALLECULAE AND PYRIFORM SINUSES) ALSO SEEN ONCE WITH HONEY TSP AND NECTAR THICK CUP TRIALS. ESOPHAGEAL PHASE (SEE RADIOLOGIST'S REPORT FOR SPECIFICS) APPARENT PERSISTENT GASTROESOPHAGEAL STRICTURE MOSTLY WITH PUDDING TSP CAUSING RETROGRADE BACKFLOW THROUGH THE PHARYNGOESOPHAGEAL SEGMENT OPENING TO THE ORAL CAVITY (RE-SWALLOWED 3 TIMES). NO ASPIRATION BUT HAS RISK IF PRECAUTIONS NOT USED. TRACE LARYNGEAL PENETRATION MOSTLY WITH THIN LIQUIDS SEQUENTIAL SIPS W/O COUGH ABOVE VOCAL FOLDS WITH EJECTION AND LIKELY DUE TO ESOPHAGEAL STRICTURE. BENEFITS FROM THIN/NECTAR THICK LIQUIDS TSP LEVEL OR SMALL SIP VIA CUP WITH HARD SWALLOW, EFFORTFUL BREATH HOLD UPRIGHT FOR 20-30 MINUTES (REFLUX PRECAUTIONS). MOVING HEAD/JAW FORWARD ASSISTED WITH CLEARING THE LAST SWALLOW OF THIN LIQUIDS WHEN HE COMPLETED SEQUENTIAL SIPS. RECOMMENDATIONS: CONTINUE WITH PO BUT UPGRADE (FROM FULL LIQUID DIET) TO BLAND (ANTI-REFLUX) LIQUIFIED PUREED LIKE THIN OR NECTAR THICK LIQUIDS (TSP/SMALL SIP VIA CUP) USING POSTED AND UPDATED ASPIRATION AND REFLUX PRECAUTIONS AND SUPERVISION. EDUCATED/TRAINED PT/RN IN POSTED PRECAUTIONS. DYSPHAGIA MANAGEMENT/TX (SEE REPORT AND DETAILS ON ALL AREAS OF DEFICIT TO FOLLOW) F/UP WITH GI REGARDING ESOPHAGEAL STRICTURE (DILATION, STENT?, GERD MEDS, BLAND DIET SINCE HE IS VARIABLY COMPLIANT WITH DIET LIKES COFFEE AND CHOCOLATE) F/UP WITH ENT REGARDING JAW (READJUSTMENT AFTER MUSCLES RELAXED) LTG: SAFE/EFFICIENT/ADEQUATE INTAKE OF LEAST RESTRICTED DIET/LIQUIDS W/O OVERT ASPIRATION/REFLUX TENTATIVE STG: PATIENT WILL CONSUME BLAND (ANTI REFLUX DIET) >75% OF LIQUIFIED PUREED LIKE THIN/NECTAR THICK LIQ DIET AND ADDITIONAL INTAKE OF ENSURE ALSO RECOMMENDED USING POSTED ASPIRATION/REFLUX PRECAUTIONS AND SWALLOW STRATEGIES W/O OVERT ASPIRATION/REFLUX 90% OF THE TIME. EDUCATED/TRAINED RN AND PATIENT IN POSTED ASPIRATION AND REFLUX PRECAUTIONS. D/W RN, SLAVA POWELL KHOI FRANCHISE SALES REPRESENTATIVE, AND PATIENT Addendum: 06/04/18 at 1207 by ELLIS BARNES HEAD OF SALES SWALLOW STATUS AND PLAN: REVIEWED VIDEOSWALLOW STUDY IMAGES AND MET WITH PATIENT REGARDING RESULTS, SEE UPDATED SWALLOW STUDY REPORT. EDUCATED/TRAINED NEW STAFF (NHAN GAUTAM) AND PATIENT IN POSTED ASPIRATION AND REFLUX PRECAUTIONS. PATIENT NPO FOR JAW REPOSITION SURGERY. PLAN: SEE MOD BARIUM SWALLOW STUDY FOR PLAN OF CARE
--- NOTE | 2018-06-04 12:32 | NUR ---
CASE MANAGEMENT:REVIEW 06/04/18 SI:UGIB. ASPIRATION PNA. DYSPHAGIA TMJ DISLOCATION S/P EGD(+) ESOPHAGEAL STRICTURE AND ULCERATIVE ESOPHAGITIS 98.7 85 19 129/93 99% ON RA IS: IVF@100/HR PROTONIX PO Q12 CARAFATE PO QID ATIVAN PO TID IV DILAUDID Q6HRS PRN : TELEMETRY STATUS DCP: FROM HOME PLAN: SCHEDULED FOR SURGERY TODAY FOR CLOSED REDUCTION MANDIBLE DISLOCATION
[2018-06-04] MEDS ORDERED: PANTOPRAZOLE SO40 MG ORAL (12:51)
[2018-06-04] MEDS ORDERED: SUCRALFATE1 GM ORAL (12:51)
--- NOTE | 2018-06-04 12:53 | Discharge Summary ---
Discharge Summary Hospital Course Date of Admission May 31, 2018 at 05:10 Date of Discharge Admitting Diagnosis ALOC/ ASPIRATION/ UPPER GI BLEED HPI Raman Chávez is a 32 year old male who was admitted on May 31, 2018 at 05:10 for Aloc/Aspiration/Upper Gi Bleed Hospital Course #Acute blood loss anemia #Coffee ground emesis #Esophageal stricture #GERD - s/p EGD without active bleeding seen - continue PPI and Carafate as outpatient #Acute Metabolic encephalopathy, resolved #Etoh Abuse - Likely secondary to etoh abuse - Cont IVF, thiamine/folate # TMJ dislocation - patient seen by Oral Surgery, unable to do bedside reduction, patient will need to follow up with [facility] as outpatient. Information given by case management - OTC Tylenol for pain Time spent in preparing discharge was 32 minutes Discharge Discharge Disposition Patient was discharged to Home Discharge Diagnoses: (1) Upper gastrointestinal bleed (2) Recurrent jaw subluxation Rylan Gatica MD Jun 04, 2018 12:53
[2018-06-04] MEDS: Hydromorphone 0.5mg/0.5ml inj IVP PRN (13:47)
[2018-06-04] MEDS ORDERED: Lidocaine 1% MPF 10mg/ml 5ml ONE (14:40)
[2018-06-04] MEDS ORDERED: Sodium Chloride 10ml vial INJ ONE (14:40)
[2018-06-04] MEDS ORDERED: Propofol 200mg/20ml IV ONE (14:40)
--- NOTE | 2018-06-04 14:51 | NUR ---
NURSE NOTES: The patient went down for the surgery but received a call from LOTUS Jamil on 1451 at surgery unit saying that the surgery will not happen today. The trimming caser is on the floor to communicate the reason for not doing surgery.
--- NOTE | 2018-06-04 15:03 | NUR ---
NURSE NOTES: Sara/ driver/sales workers was at the bedside to discuss option about elective surgery at [facility] after discharge. The patient agreed and verbalized understanding.
--- NOTE | 2018-06-04 15:17 | NUR ---
NURSE NOTES: Per Severiano/ healthcare administration internship, the patient's name and date of is different than that is on identification card. The incorrect information was obtained from ambulance. The name and date of correction was made. Reprinted ID band and applied to the patient. The patient label was reprinted and applied.
--- NOTE | 2018-06-04 15:35 | NUR ---
Social Service Note ZENAIDA spoke with patient regarding follow up care. Patient continues to be unable to provide insurance information. [facility] resources provided. Once insurance information is located patient will contact provider to determine contracted facility. Patient acknowledged understanding. Patient will discharge home today. Primary nurse aware.
[2018-06-04 16:00] VITALS: BP 138/89
--- NOTE | 2018-06-04 16:11 | NUR ---
NURSE NOTES: Per Sara/neonatal social worker, the clothing and taxi service will be provided to go home safely. The patient denies of chest pain or shortness of breath tat this time.
--- NOTE | 2018-06-04 17:30 | NUR ---
NURSE NOTES: Discharge instruction given and patient verbalized understanding. Inventory check done. Provided clothes and Awaiting for Taxi.
--- NOTE | 2018-06-04 17:50 | NUR ---
NURSE NOTES: Removed IV line. IV site clean and no bleeding noted. Patient is discharged with stable condition via taxi heading to [address] [place] [address]
--- NOTE | 2018-06-05 09:34 | NUR ---
DISCHARGE SWALLOW/SPEECH THERAPY SUMMARY: SEEN FOR APPARENT DYSPHAGIA, SEE SWALLOW EVALUATION AND MOD BARIUM SWALLOW STUDY. GOALS MET FOR STAFF AND PATIENT EDUCATED/TRAINED IN ASPIRATION AND REFLUX PRECAUTIONS WITH BLAND LIQUIFIED PUREED LIKE THIN OR NECTAR THICK SOUP DIET. GOALS MET FOR ADEQUATE INTAKE OF >75%. UPDATED MOD BARIUM SWALLOW STUDY: SWALLOW/SPEECH THERAPY NOTE: MODIFIED BARIUM SWALLOW STUDY COMPLETED, SEE FULL REPORT IN ST CARE ACTIVITY SECTION. TRIALS OF BARIUM IN LATERAL VIEW THIN LIQUIDS: TSP, TSP, CUP, CUP SEQUENTIAL NECTAR THICK LIQUIDS: TSP, CUP (NOT SEQUENTIAL TOO DIFFICULT) HONEY THICK LIQUID: TSP PUREED: TSP AP VIEW ONLY PUREED TSP INITIAL IMPRESSIONS: MILD-MOD ORAL PREP/ORAL, MILD-MOD PHARYNGEAL, AND SEVERE ESOPHAGEAL DYSPHAGIA WITH VARIABLY INCREASED TRANSIT TIMES (WORSE IN THE ESOPHAGEAL PHASES OF THE SWALLOW) COMPOUNDED BY DISLOCATED JAW. ORAL PREP AND ORAL PHASE: LIPS AND MOUTH OPEN AT REST DUE TO JAW DISLOCATION BUT NO ORAL SPILLAGE WITH TSP/CUP. AP TONGUE MOVEMENT VERY SLOW WITH PUREED AND HAD PIECEMEAL DEGLUTITION (5 TIMES) TO CLEAR TSP BOLUS POSSIBLY BEHAVIORAL VERSUS RELATED TO JAW POSITION. PIECEMEAL DEGLUTITION ALSO SEEN WITH THIN/NECTAR THICK LIQUID CUP LEVEL DRINKING QUESTIONABLE IF THIS IS BEHAVIORAL TO AVOID CHOKING. PHARYNGEAL PHASE: APPEARS TO HAVE VARIABLE BUT MOSTLYLY MILDLY REDUCED TONGUE BASE RETRACTION, HYOLARYNGEAL EXCURSION, AND REDUCED OPENING OF PHARYNGOESOPHAGEAL SEGMENT OPENING PARTICULARLY WITH THICKER CONSISTENCIES LIKE HONEY THICK LIQUID TSP AND PUREED TSP. DEFICITS IN PHARYNGEAL STRIPPING WAVE ALSO NOTED. DELAY IN INITIATING FINAL SWALLOW OF THIN LIQUIDS SEQUENTIAL SIPS AND ALMOST ASPIRATED (PREVENTED BY PARTS SALES ASSOCIATE CUE TO HOLD BREATH WITH EFFORT). PATIENT ABLE TO INITIATE AND CLEAR BOLUS 3 TIMES BY MOVING HIS JAW AND HEAD FORWARD TO OPEN UP THE PHARYNGEAL ESOPHAGEAL SEGMENT WITH SOME EPISODES OF PHARYNGEAL BACKFLOW. MILD PHARYNGEAL BACKFLOW (FROM VALLECULAE AND PYRIFORM SINUSES) INTO ORAL CAVITY (RESWALLOWED) ALSO SEEN ONCE WITH HONEY TSP AND NECTAR THICK CUP TRIALS. PROBLEMS MAY BE RELATED OR COMPOUNDED BY ESOPHAGEAL STRICTURE AND JAW DISLOCATION/POSITION. ESOPHAGEAL PHASE (SEE RADIOLOGIST'S REPORT FOR SPECIFICS) APPARENT PERSISTENT GASTROESOPHAGEAL STRICTURE MOSTLY WITH PUDDING TSP CAUSING RETROGRADE BACKFLOW THROUGH THE PHARYNGOESOPHAGEAL SEGMENT OPENING TO THE ORAL CAVITY (RESWALLOWED 3 TIMES). NO ASPIRATION BUT HAS RISK IF PRECAUTIONS NOT USED. TRACE LARYNGEAL PENETRATION MOSTLY WITH THIN LIQUIDS SEQUENTIAL SIPS VIA CUP W/O COUGH ABOVE VOCAL FOLDS WITH EJECTION AND LIKELY DUE TO ESOPHAGEAL STRICTURE. CUED EFFORTFUL BREATHHOLD ASSISTED WITH AIRWAY PROTECTION. BENEFITS FROM THIN/NECTAR THICK LIQUIDS TSP LEVEL OR SMALL SIP VIA CUP WITH HARD SWALLOW, EFFORTFUL SWALLOW AND BREATH HOLD UPRIGHT FOR 20-30 MINUTES (REFLUX PRECAUTIONS). MOVING HEAD/JAW FORWARD ASSISTED WITH CLEARING THE LAST SWALLOW OF THIN LIQUIDS WHEN HE COMPLETED SEQUENTIAL SIPS. RECOMMENDATIONS: CONTINUE WITH PO BUT UPGRADE (FROM FULL LIQUID DIET) TO BLAND (ANTI-REFLUX) LIQUIFIED PUREED LIKE THIN OR NECTAR THICK LIQUIDS (TSP/SMALL SIP VIA CUP) USING POSTED AND UPDATED ASPIRATION AND REFLUX PRECAUTIONS AND SUPERVISION. CONSIDER REPEATING MOD BARIUM SWALLOW OP AND AFTER JAW REPOSITION POST SURGERY. EDUCATED/TRAINED PT/RN IN POSTED PRECAUTIONS. DYSPHAGIA MANAGEMENT/TX (SEE REPORT AND DETAILS ON ALL AREAS OF DEFICIT TO FOLLOW) F/UP WITH GI REGARDING ESOPHAGEAL STRICTURE (FURTHER DILATION, STENT?, GERD MEDS, BLAND DIET SINCE HE IS VARIABLY COMPLIANT WITH DIET LIKES COFFEE AND CHOCOLATE) F/UP WITH ENT REGARDING JAW (READJUSTMENT AFTER MUSCLES RELAXED) LTG: SAFE/EFFICIENT/ADEQUATE INTAKE OF LEAST RESTRICTED DIET/LIQUIDS W/O OVERT ASPIRATION/REFLUX TENTATIVE STG: PATIENT WILL CONSUME BLAND (ANTI REFLUX DIET) >75% OF LIQUIFIED PUREED LIKE THIN/NECTAR THICK LIQ DIET AND ADDITIONAL INTAKE OF ENSURE ALSO RECOMMENDED USING POSTED ASPIRATION/REFLUX PRECAUTIONS AND SWALLOW STRATEGIES W/O OVERT ASPIRATION/REFLUX 90% OF THE TIME. EDUCATED/TRAINED RN AND PATIENT IN POSTED ASPIRATION AND REFLUX PRECAUTIONS. CONSIDER PSYCHIATRIST CONSULT REGARDING ISSUES WITH SWALLOWING RECOMMENDED IP OR OP WHEN DISCHARGED. D/W RN, SLAVA POWELL KHOI ADOPTION AGENT, AND PATIENT Addendum: 06/05/18 at 1035 by ELLIS BARNES PARTS SALES ASSOCIATE UPDATE DYSPHAGIA WITH VARIABLY INCREASED TRANSIT TIMES (WORSE IN THE ESOPHAGEAL PHASES OF THE SWALLOW) MAY BE COMPOUNDED BY DISLOCATED, ESOPHAGEAL STRICTURE, BEHAVIORAL COMPENSATIONS OR ACTIONS, AND SENSORIMOTOR DEFICITS.
--- NOTE | 2018-06-05 10:55 | Diagnostic Imaging Report ---
Indications: Dysphagia Technique: Patient ingested multiple substances under the supervision of speech pathology. Video fluoroscopic recording performed. Total fluoroscopy time to 35.6 seconds. Total dose area product 0.29486 mGycm2 Total number of images-10 Comparison: none Findings: With ingestion of thin liquid barium, trace supraglottic penetration is seen with sequential swallows. This cleared spontaneously. No aspiration. With other substances, no evidence of aspiration or penetration. There is some significant delayed pooling with sequential swallowing of thin liquid barium. Of other consistencies, no evidence of aspiration or penetration. However, with barium pudding, retrograde propagation of material with reflux into the hypopharynx and pharynx is noted. AP images of the lower esophagus demonstrates marked esophageal distention as well as the reflux. Patient reportedly has history of distal esophageal stricture Impression: Penetration of thin liquid barium. Negative for aspiration Reflux of material from the esophagus and evidence of dilatation of the thoracic esophagus. Likely related to history of distal esophageal stricture Please refer to speech pathology report for more detailed analysis
--- NOTE | 2018-06-06 16:05 | Cardiology Report ---
APPROVED REPORT EKG Measurement Heart [id number] Normal sinus rhythm Normal ECG
== END 2018-06-04 17:50 | disposition home or self-care (01) | DRG 377 ==
LOC: EDBD 03:28 → EMR 03:40 → EEVIPCON 05:10 → 2E 05:10 → MERGE 05:10 → EDBD 05:10 → EDBEDREQ 05:18
PROC: 0DB38ZX Excision of Lower Esophagus, Via Natural or Artificial Opening Endoscopic, Diagnostic (ICD-10-PCS; principal; 2018-06-02 09:04)
DX: K92.2 Gastrointestinal hemorrhage, unspecified (principal); G93.41 Metabolic encephalopathy; D62 Acute posthemorrhagic anemia; S03.00XA Dislocation of jaw, unspecified side, initial encounter; X58.XXXA Exposure to other specified factors, initial encounter; K22.2 Esophageal obstruction; K21.9 Gastro-esophageal reflux disease without esophagitis; F10.129 Alcohol abuse with intoxication, unspecified; R13.10 Dysphagia, unspecified; K44.9 Diaphragmatic hernia without obstruction or gangrene; D50.9 Iron deficiency anemia, unspecified
CPT/HCPCS: 36415; 70110; 70450; 71045; 74230; 80048; 80053; 80307; 80329; 81003; 82550; 83540; 83550; 83735; 84100; 85025; 85610; 85730; 86850; 86900; 86901; 87040; 92610; 93005; 94003; 94150; 99291; J2405

== ENCOUNTER 2019-12-10 12:59 | Emergency (ER) | payer SELFPAY ==
[~2019-12-10] VITALS: Ht 182.9 cm; Wt 90.7 kg
[~2019-12-10 12:59] MED LIST changes: +PANTOPRAZOLE SO40 MG ORAL; +SUCRALFATE1 GM ORAL
[2019-12-10 13:06] VITALS: BP 117/79
[2019-12-10] MEDS ORDERED: Magnesium Sulfate 2,000 MG, Folic Acid 1 MG, Multivitamin - 12 Injection 10 ML in Sodiu... IV ONE (13:30)
--- NOTE | 2019-12-10 13:45 | Emergency Room Report ---
History of Present Illness General Chief Complaint: Alcohol Intoxication Source: Patient, EMS Present Illness HPI 34-year-old male brought in by paramedics for alcohol intoxication from home. Last drink reported at 1 PM today per EMS. Per EMS, patient lives with roommate. Patient admits to alcohol use, denies any other drug use. No vomiting, abdominal pain, fever, chest pain, seizure. Has pain to the right jaw. Not sure if he had trauma. Allergies: Coded Allergies: No Known Allergies (Unverified , 12/21/17) COVID-19 Screening Contact w/high risk pt: No Experienced COVID-19 symptoms?: No COVID-19 Testing performed MANAGER PERFORMANCE: No Patient History Past Medical History: see triage record Reviewed Nursing Documentation: PMH: Agreed; PSxH: Agreed Nursing Documentation-PMH Hx Cardiac Problems: No Hx Cancer: Yes - esophageal ca Hx Gastrointestinal Problems: Yes - GERD Hx Neurological Problems: No Review of Systems All Other Systems: negative except mentioned in HPI Physical Exam Vital Signs Date Time Temp Pulse Resp B/P (MAP) Pulse Ox O2 Delivery O2 Flow Rate FiO2 12/10/19 12:59 98.2 96 18 117/79 (92) 97 Room Air Sp02 EP Interpretation: reviewed, normal General Appearance: normal inspection, well appearing, no apparent distress, alert, GCS 15, non-toxic Eyes: bilateral eye normal inspection ENT: other - Tenderness and mild ecchymosis to right upper lip. No lacerations or bleeding. Neck: normal inspection, full range of motion, supple, no bony tend Respiratory: chest non-tender, lungs clear, normal breath sounds, no respiratory distress Cardiovascular #1: normal peripheral pulses, regular rate, rhythm Gastrointestinal: normal inspection, normal bowel sounds, non tender, soft, no mass, no organomegaly, no guarding, no rebound Genitourinary: no CVA tenderness Musculoskeletal: normal inspection, normal range of motion, no calf tenderness, gait/station normal, non-tender Neurologic: alert, tax compliance representative III-XII nml as tested, oriented, normal gait, other - No tremors Psychiatric: judgement/insight normal, mood/affect normal Skin: no rash, normal color, warm/dry Lymphatic: no adenopathy Medical Decision Making PA Attestation Dr. Jj is my supervising physician whom patient management and care has been discussed with. Diagnostic Impression: Primary Impression: Acute alcoholic intoxication Qualified Codes: F10.920 - Alcohol use, unspecified with intoxication, uncomplicated ER Course Pt. presents to the ED c/o alcohol intoxication. Ddx considered but are not limited to alcohol intoxication, alcohol withdrawal, delirium tremens, seizure, GI bleed, jaw dislocation, jaw fracture. Vital signs: are WNL, pt. is afebrile H&PE are most consistent with acute alcohol intoxication ORDERS: ETOH is elevated, negative drug screen. Other labs WNL. CT head normal, CT maxillofacial shows upper buccal contusion, screws from past surgeries, no acute fracture or dislocation. ED INTERVENTIONS: Patient given IV NS, banana bag, Zofran. DISCHARGE: Patient was observed in the emergency department for several hours. Patient was calm, cooperative, no seizures or tremors, no vomiting. After flu ids, patient was able to ambulate with steady gait on his own. He is able to get a ride home. At this time patient is stable for d/c to home. Will provide printed patient care instructions, and any necessary prescriptions. Advised to stop drinking alcohol. Advised to follow up outpatient in 1-2 days. Care plan and follow up instructions have been discussed with the patient prior to discharge. Laboratory Tests Test 12/10/19 14:19 White Blood Count 6.1 K/UL (4.8-10.8) Red Blood Count 4.90 M/UL (4.70-6.10) Hemoglobin 11.3 G/DL (14.2-18.0) L Hematocrit 36.7 % (42.0-52.0) L Mean Corpuscular Volume 75 FL (80-99) L Mean Corpuscular Hemoglobin 23.0 PG (27.0-31.0) L Mean Corpuscular Hemoglobin Concent 30.7 G/DL (32.0-36.0) L Red Cell Distribution Width 18.2 % (11.6-14.8) H Platelet Count 420 K/UL (150-450) Mean Platelet Volume 7.1 FL (6.5-10.1) Neutrophils (%) (Auto) 68.4 % (45.0-75.0) Lymphocytes (%) (Auto) 23.5 % (20.0-45.0) Monocytes (%) (Auto) 4.5 % (1.0-10.0) Eosinophils (%) (Auto) 1.9 % (0.0-3.0) Basophils (%) (Auto) 1.7 % (0.0-2.0) Urine Color Pale yellow Urine Appearance Clear Urine pH 6 (4.5-8.0) Urine Specific [place] 1.010 (1.005-1.035) Urine Protein Negative (NEGATIVE) Urine Glucose (UA) Negative (NEGATIVE) Urine Ketones Negative (NEGATIVE) Urine Blood Negative (NEGATIVE) Urine Nitrite Negative (NEGATIVE) Urine Bilirubin Negative (NEGATIVE) Urine Urobilinogen Normal MG/DL (0.0-1.0) Urine Leukocyte Esterase Negative (NEGATIVE) Sodium Level 145 MMOL/L (136-145) Potassium Level 4.4 MMOL/L (3.5-5.1) Chloride Level 112 MMOL/L (98-107) H Carbon Dioxide Level 24 MMOL/L (21-32) Anion Gap 9 mmol/L (5-15) Blood Urea Nitrogen 8 mg/dL (7-18) Creatinine 1.0 MG/DL (0.55-1.30) Estimated Glomerular Filtration Rate > 60 mL/min (>60) Glucose Level 112 MG/DL (74-106) H Calcium Level 7.9 MG/DL (8.5-10.1) L Phosphorus Level 2.8 MG/DL (2.5-4.9) Magnesium Level 2.5 MG/DL (1.8-2.4) H Total Bilirubin 0.1 MG/DL (0.2-1.0) L Aspartate Amino Transferase (AST) 17 U/L (15-37) Alanine Aminotransferase (ALT) 22 U/L (12-78) Alkaline Phosphatase 90 U/L (46-116) Total Protein 6.9 G/DL (6.4-8.2) Albumin 3.5 G/DL (3.4-5.0) Globulin 3.4 g/dL Albumin/Globulin Ratio 1.0 (1.0-2.7) Salicylates Level 1.4 ug/mL (2.8-20) L Urine Opiates Screen Negative (NEGATIVE) Acetaminophen Level < 2 MCG/ML (10-30) L Urine Barbiturates Screen Negative (NEGATIVE) Phencyclidine (PCP) Screen Negative (NEGATIVE) Urine Amphetamines Screen Negative (NEGATIVE) Urine Benzodiazepines Screen Negative (NEGATIVE) Urine Cocaine Screen Negative (NEGATIVE) Urine Marijuana (THC) Screen Negative (NEGATIVE) Serum Alcohol 395 mg/dL CT/MRI/US Diagnostic Results CT/MRI/US Diagnostic Results : Impression CT head non contrast: Impression: Negative CT maxillofacial non contrast: Impression: No acute bony trauma Evidence of right upper buccal and lower malar region soft tissue contusion Unusual finding of screws within the maxilla and mandible. Suspect that these ar e cosmetic in nature. Correlate with clinical findings Complete opacification of the right maxillary sinus. Most likely due to inflammatory disease. There is also some maxillary sinus disease on the left. The CT scanner at [facility] is accredited by the [employer] and the scans are performed using protocols designed to limit radiation exposure to as low as reasonably achievable to attain images of sufficient resolution adequate for diagnostic evaluation. Last Vital Signs Date Time Temp Pulse Resp B/P (MAP) Pulse Ox O2 Delivery O2 Flow Rate FiO2 12/10/19 13:06 96 18 Room Air 12/10/19 13:06 98.2 117/79 97 Disposition: HOME, SELF-CARE Condition: Stable Aminata Garcia Dec 10, 2019 13:45
--- NOTE | 2019-12-10 14:54 | Diagnostic Imaging Report ---
Indications: Facial trauma, pain in the jaw Technique: Spiral images obtained through the facial bones. No IV contrast utilized. Multiplanar reconstructions were generated.Total dose length product 375 mGycm. CTDIvol(s) 50 mGy. Dose reduction achieved using automated exposure control Comparison: 02/18/2018 Findings: There is a contusion of the right lower malar and upper buccal region. No acute fractures. No worrisome sinus air-fluid levels. There is complete opacification of the right maxillary sinus. The remaining sinuses are clear. Unusual screws are seen in the alveolar ridge of the maxilla bilaterally. Similar findings are evident previously except that the screws are posterior to where they were previously placed. Likewise, screws are seen within the mandible bilaterally. That on the right is new, that on the left is posterior to that which was present previously. The dentition is intact. There is minimal left maxillary sinus mucosal disease. The nasal septum is midline. The optic lobes and retroseptal orbits are intact. Impression: No acute bony trauma Evidence of right upper buccal and lower malar region soft tissue contusion Unusual finding of screws within the maxilla and mandible. Suspect that these are cosmetic in nature. Correlate with clinical findings Complete opacification of the right maxillary sinus. Most likely due to inflammatory disease. There is also some maxillary sinus disease on the left. The CT scanner at [facility] is accredited by the [employer] and the scans are performed using protocols designed to limit radiation exposure to as low as reasonably achievable to attain images of sufficient resolution adequate for diagnostic evaluation.
--- NOTE | 2019-12-10 14:57 | Diagnostic Imaging Report ---
Indications: Altered mental status Technique: Spiral acquisitions obtained through the brain. Angled axial and coronal 5 x 5 mm slices were reconstructed. Total dose length product 1072 mGycm. CTDI vol(s) 53 mGy. Dose reduction achieved using automated exposure control Comparison: For 2028 Findings: No acute intracranial hemorrhage or edema, mass effect, nor midline shift. Normal olsen-white differentiation. Normal size ventricles and extra axial CSF spaces. Intact calvarium. Visualized orbits and sinuses are unremarkable. The mastoids are clear no significant interim change Impression: Negative The CT scanner at [facility] is accredited by the [employer] and the scans are performed using protocols designed to limit radiation exposure to as low as reasonably achievable to attain images of sufficient resolution adequate for diagnostic evaluation.
[2019-12-10 15:01] LABS: BASOPHILS % (AUTO) 1.7 % (0.0-2.0); EOSINOPHILS % (AUTO) 1.9 % (0.0-3.0); HEMATOCRIT 36.7 % (42.0-52.0); HEMOGLOBIN 11.3 G/DL (14.2-18.0); LYMPHOCYTES % (AUTO) 23.5 % (20.0-45.0); MEAN CORPUSCULAR VOLUME 75 FL (80-99); MONOCYTES % (AUTO) 4.5 % (1.0-10.0); NEUTROPHILS % (AUTO) 68.4 % (45.0-75.0); PLATELET COUNT 420 K/UL (150-450); RED CELL DISTRIBUTION WIDTH 18.2 % (11.6-14.8); WHITE BLOOD COUNT 6.1 K/UL (4.8-10.8)
[2019-12-10 15:06] LABS: APPEARANCE,URINE CLEAR; BILIRUBIN, URINE NEGATIVE (NEGATIVE); COLOR,URINE PALE YELLOW; GLUCOSE, URINE (UA) NEGATIVE (NEGATIVE); KETONES,URINE NEGATIVE (NEGATIVE); LEUKOCYTE ESTERASE ,URINE NEGATIVE (NEGATIVE); NITRITE,URINE NEGATIVE (NEGATIVE); PH,URINE 6 (4.5-8.0); PROTEIN,URINE NEGATIVE (NEGATIVE); UROBILINOGEN,URINE NORMAL MG/DL (0.0-1.0)
[2019-12-10 15:09] LABS: ANION GAP 9 mmol/L (5-15); BLOOD UREA NITROGEN 8 mg/dL (7-18); CALCIUM 7.9 MG/DL (8.5-10.1); CARBON DIOXIDE 24 MMOL/L (21-32); CHLORIDE 112 MMOL/L (98-107); POTASSIUM 4.4 MMOL/L (3.5-5.1); SODIUM 145 MMOL/L (136-145)
[2019-12-10 15:16] LABS: ALANINE AMINOTRANSFERASE 22 U/L (12-78); ALBUMIN 3.5 G/DL (3.4-5.0); ALKALINE PHOSPHATASE 90 U/L (46-116); ASPARTATE AMINO TRANSFERASE 17 U/L (15-37); BILIRUBIN,TOTAL 0.1 MG/DL (0.2-1.0)
[2019-12-10 15:33] LABS: PHOSPHORUS 2.8 MG/DL (2.5-4.9)
[2019-12-10 17:34] VITALS: BP 118/82
== END 2019-12-10 17:34 | disposition home or self-care (01) ==
LOC: EDBD 12:59 → EMR 14:17
DX: F10.920 Alcohol use, unspecified with intoxication, uncomplicated (principal); Y90.8 Blood alcohol level of 240 mg/100 ml or more; Z85.01 Personal history of malignant neoplasm of esophagus
CPT/HCPCS: 36415; 70450; 70486; 80053; 80307; 81003; 83735; 84100; 85025; 96361; 96374; 99284; G0480; J2405; J3475; J3490; J7030